=== PATIENT | male | born 1950 | race Caucasian/White ===

== ENCOUNTER 2018-01-15 14:26 | Emergency (ER) | payer OTHER ==
[~2018-01-15] VITALS: Ht 177.8 cm; Wt 113.5 kg
[~2018-01-15 14:26] MED LIST: CHOL239. PO; CIPR500T3 PO; DIFL5DRO OP; FLUT10SP NAS; METR500T PO; OMEG1CAP48 PO; PENT100C2 PO; QUIN20TA PO; QUIN20TA17 PO; TRIA10PO2 TD; [UNRECOGNIZED DRUG - OTHER] PO
[2018-01-15 15:16] LABS: BASOPHILS # (AUTO) 0.03 x10^3/uL (0-0.1); BASOPHILS % (AUTO) 0 % (0-1); EOSINOPHILS # (AUTO) 0.13 x10^3/uL (0-0.4); EOSINOPHILS % (AUTO) 1 % (1-7); LYMPHOCYTES # (AUTO) 2.26 x10^3/uL (1-3.4); LYMPHOCYTES % (AUTO) 22 % (22-44); MD NO; MEAN CORPUSCULAR HEMOGLOBIN 29.8 pg (27.5-34.5); MEAN CORPUSCULAR HGB CONC 32.7 g/dL (33.2-36.2); MEAN CORPUSCULAR VOLUME 91.1 fL (81-97); MEAN PLATELET VOLUME 9.5 fL (7.4-10.4); MONOCYTES # (AUTO) 0.74 x10^3/uL (0.2-0.8); MONOCYTES % (AUTO) 7 % (2-9); NEUTROPHILS # (AUTO) 7.21 x10^3/uL (1.8-6.8); NEUTROPHILS % (AUTO) 70 % (42-75); PLATELET COUNT 129 x10^3/uL (130-400); RED BLOOD COUNT 4.23 x10^6/uL (4.38-5.82)
[2018-01-15 15:20] LABS: INTERNATIONAL NORMALIZED RATIO 1.02 (0.93-1.1); PROTHROMBIN TIME 10.6 Seconds (9.6-11.5)
[2018-01-15] MEDS ORDERED: PHENYLEPHRINE NASAL 1%, 15ML SPRAY ONE (15:30)
[2018-01-15 17:31] VITALS: BP 156/104
== END 2018-01-15 17:32 | disposition home or self-care (01) ==
LOC: MERGE 14:26 → ED 16:59
DX: R04.0 Epistaxis (principal); I10 Essential (primary) hypertension; K21.9 Gastro-esophageal reflux disease without esophagitis; Z90.49 Acquired absence of other specified parts of digestive tract
CPT/HCPCS: 30901; 36415; 85025; 85610; 85730; 99284

== ENCOUNTER 2018-01-17 14:21 | Emergency (ER) | payer OTHER ==
[~2018-01-17] VITALS: Ht 177.8 cm; Wt 114.0 kg
[2018-01-17] MEDS ORDERED: OXYMETAZOLINE NASAL SPRAY 0.05%, 15ML NAS ONE (14:30)
[2018-01-17 14:37] VITALS: BP 136/88
[2018-01-17] MEDS ORDERED: OXYMETAZOLINE NASAL SPRAY 0.05%, 15ML ONE ×2 (14:45→15:09)
[2018-01-17] MEDS: SODIUM CHLORIDE 0.9% 1,000ML IVBOLUS ONE ×2 (14:54→15:21)
[2018-01-17 15:00] LABS: MEAN CORPUSCULAR HEMOGLOBIN 29.5 pg (27.5-34.5); MEAN CORPUSCULAR HGB CONC 32.5 g/dL (33.2-36.2); MEAN CORPUSCULAR VOLUME 90.8 fL (81-97); MEAN PLATELET VOLUME 9.7 fL (7.4-10.4); PLATELET COUNT 142 x10^3/uL (130-400); RED BLOOD COUNT 4.03 x10^6/uL (4.38-5.82); RED CELL DISTRIBUTION WIDTH 19.7 % (9.4-14.8)
[2018-01-17 15:07] LABS: ALBUMIN 2.9 g/dL (3.4-5.0); ANION GAP 9 mmol/L (5-15); CALCIUM 8.6 mg/dL (8.5-10.1); CHLORIDE 107 mmol/L (98-107); CREATININE 1.27 mg/dL (0.7-1.3)
[2018-01-17 15:16] LABS: INTERNATIONAL NORMALIZED RATIO 1.03 (0.93-1.1); PROTHROMBIN TIME 10.7 Seconds (9.6-11.5)
[2018-01-17 15:34] LABS: BASOPHILS # (AUTO) 0.04 x10^3/uL (0-0.1); BASOPHILS % (AUTO) 0 % (0-1); EOSINOPHILS # (AUTO) 0.12 x10^3/uL (0-0.4); EOSINOPHILS % (AUTO) 1 % (1-7); LYMPHOCYTES # (AUTO) 2.01 x10^3/uL (1-3.4); LYMPHOCYTES % (AUTO) 17 % (22-44); MD SCAN; MONOCYTES # (AUTO) 0.68 x10^3/uL (0.2-0.8); MONOCYTES % (AUTO) 6 % (2-9); NEUTROPHILS # (AUTO) 9.15 x10^3/uL (1.8-6.8); NEUTROPHILS % (AUTO) 76 % (42-75)
[2018-01-17] MEDS ORDERED: SODIUM CHLORIDE FLUSH 10ML SYR IVF ONE (16:00)
== END 2018-01-17 16:33 | disposition home or self-care (01) ==
LOC: MERGE 14:21 → ED 16:19
DX: R04.0 Epistaxis (principal); D62 Acute posthemorrhagic anemia; D72.829 Elevated white blood cell count, unspecified; I10 Essential (primary) hypertension
CPT/HCPCS: 36415; 80048; 82040; 85025; 85610; 85730; 96360; 99284; J7030

== ENCOUNTER 2018-01-31 03:55 | Emergency (ER) | payer OTHER ==
[~2018-01-31] VITALS: Ht 177.8 cm; Wt 112.0 kg
[~2018-01-31 03:55] MED LIST changes: +PANT40TA5 PO
[2018-01-31] MEDS ORDERED: TRANEXAMIC ACID 100 MG/ML, 10ML ONE ×2 (05:16→07:52)
[2018-01-31] MEDS ORDERED: TRANEXAMIC ACID 100 MG/ML, 10ML TP ONE (05:30)
[2018-01-31 05:42] LABS: BASOPHILS # (AUTO) 0.03 x10^3/uL (0-0.1); BASOPHILS % (AUTO) 0 % (0-1); EOSINOPHILS # (AUTO) 0.12 x10^3/uL (0-0.4); EOSINOPHILS % (AUTO) 1 % (1-7); LYMPHOCYTES # (AUTO) 1.38 x10^3/uL (1-3.4); LYMPHOCYTES % (AUTO) 13 % (22-44); MD NO; MEAN CORPUSCULAR HEMOGLOBIN 29.6 pg (27.5-34.5); MEAN CORPUSCULAR VOLUME 89.7 fL (81-97); MEAN PLATELET VOLUME 8.7 fL (7.4-10.4); MONOCYTES # (AUTO) 0.58 x10^3/uL (0.2-0.8); MONOCYTES % (AUTO) 6 % (2-9); NEUTROPHILS % (AUTO) 80 % (42-75); PLATELET COUNT 146 x10^3/uL (130-400); RED BLOOD COUNT 3.15 x10^6/uL (4.38-5.82); RED CELL DISTRIBUTION WIDTH 19.4 % (9.4-14.8)
[2018-01-31 06:31] VITALS: BP 137/87
[2018-01-31] MEDS ORDERED: OXYMETAZOLINE NASAL SPRAY 0.05%, 15ML ONE (06:59)
[2018-01-31] MEDS ORDERED: OXYMETAZOLINE NASAL SPRAY 0.05%, 15ML NAS ONE (07:30)
[2018-01-31] MEDS ORDERED: SODIUM CHLORIDE FLUSH 10ML SYR IVF ONE (07:30)
== END 2018-01-31 06:34 | disposition home or self-care (01) ==
LOC: ED 06:28
DX: R04.0 Epistaxis (principal); I10 Essential (primary) hypertension; K21.9 Gastro-esophageal reflux disease without esophagitis; G43.909 Migraine, unspecified, not intractable, without status migrainosus
CPT/HCPCS: 36415; 85025; 99283

== ENCOUNTER 2018-08-18 04:10 | Inpatient (IN) | payer OTHER ==
[~2018-08-18] VITALS: Ht 175.3 cm; Wt 126.0 kg
[~2018-08-18 04:10] MED LIST changes: +AMLO5TAB7 PO; +CALC625T64 PO; +CEFD300C37 PO; +MULT-751 PO; +TAMS-11 PO
[2018-08-18 05:08] LABS: INTERNATIONAL NORMALIZED RATIO 1.05 (0.93-1.1); PROTHROMBIN TIME 10.8 Seconds (9.6-11.5)
[2018-08-18 05:12] LABS: ALBUMIN 2.7 g/dL (3.4-5.0); ANION GAP 3 mmol/L (5-15); CALCIUM 7.8 mg/dL (8.5-10.1); CHLORIDE 107 mmol/L (98-107); CREATININE 1.22 mg/dL (0.7-1.3)
[2018-08-18 05:50] LABS: MEAN CORPUSCULAR HEMOGLOBIN 29.9 pg (27.5-34.5); MEAN CORPUSCULAR HGB CONC 32.3 g/dL (33.2-36.2); MEAN CORPUSCULAR VOLUME 92.7 fL (81-97); RED BLOOD COUNT 3.59 x10^6/uL (4.38-5.82); RED CELL DISTRIBUTION WIDTH 22.2 % (9.4-14.8)
[2018-08-18 06:09] LABS: MEAN PLATELET VOLUME 9.8 fL (7.4-10.4); PLATELET COUNT 81 x10^3/uL (130-400)
[2018-08-18 06:10] LABS: MD YES
[2018-08-18 06:12] LABS: BAND#(MANUAL) 0.74 x10^3/uL; BANDS%(MANUAL) 7 % (0-7); EOS#(MANUAL) 0.21 x10^3/uL (0.0-0.4); EOS% (MANUAL) 2 % (1-7); LYMPHS% (MANUAL) 20 % (22-44); MONOS#(MANUAL) 0.63 x10^3/uL (0.3-2.7); MONOS% (MANUAL) 6 % (2-9); SEG#(MANUAL) 6.83 x10^3/uL (1.8-6.8); SEGS% (MANUAL) 65 % (42-75)
[2018-08-18 06:13] LABS: ANISOCYTOSIS 2+
[2018-08-18 06:14] LABS: OVALOCYTES 1+; POLYCHROMASIA 1+
[2018-08-18 06:15] LABS: <PLATELET ESTIMATE> DECREASED; HYPOCHROMIA 1+; LARGE PLATELETS 1+
[2018-08-18] MEDS ORDERED: TRANEXAMIC ACID 100 MG/ML, 10ML ONE ×2 (06:23→06:29)
[2018-08-18] MEDS ORDERED: LIDOCAINE 1%-EPI 1:100K, 20ML ONE (06:23)
[2018-08-18] MEDS ORDERED: LIDOCAINE 1%-EPI 1:100K, 20ML INFIL ONE (06:30)
[2018-08-18] MEDS ORDERED: TRANEXAMIC ACID 1,000 MG in SODIUM CHLORIDE 0.9% 100 ML IV ONE (06:30)
[2018-08-18] MEDS ORDERED: ACETAMINOPHEN 325 MG TABLET PO PRN ×2 (08:30→13:00)
[2018-08-18] MEDS ORDERED: ONDANSETRON 2MG/ML, 2ML IVPush PRN (08:30)
[2018-08-18] MEDS ORDERED: OXYcodone IR 5MG TABLET PO PRN (08:30)
[2018-08-18] MEDS ORDERED: ONDANSETRON ODT 4 MG PO PRN (08:30)
[2018-08-18] MEDS ORDERED: hydrALAzine 20 MG/ML, 1ML IVPush PRN (08:30)
[2018-08-18] MEDS ORDERED: morphine SULFATE 10 MG/ML, 1ML IVPush PRN (08:30)
[2018-08-18] MEDS ORDERED: GUAIFENESIN/COD200MG-20MG/10ML LIQUID PO PRN (08:30)
[2018-08-18 09:15] LABS: ANION GAP 7 mmol/L (5-15); CALCIUM 8.1 mg/dL (8.5-10.1); CHLORIDE 106 mmol/L (98-107); CREATININE 1.15 mg/dL (0.7-1.3)
[2018-08-18] MEDS ORDERED: LIDOCAINE 1%-EPI 1:100K, 30ML ONE (11:03)
[2018-08-18] MEDS ORDERED: BUPIVACAINE/PF-EPI 0.25% 1:200K ONE (11:03)
[2018-08-18] MEDS ORDERED: SUCCINYLCHOLINE 20 MG/ML, 10ML ONE (11:41)
[2018-08-18] MEDS ORDERED: FENTANYL PF 250 MCG/5ML ONE (11:42)
[2018-08-18] MEDS ORDERED: MIDAZOLAM 1 MG/ML, 2ML ONE (11:42)
[2018-08-18] MEDS ORDERED: LIDOCAINE-MPF 2% ,5ML ONE (11:43)
[2018-08-18] MEDS ORDERED: PROPOFOL 10 MG/ML, 20ML ONE (11:43)
[2018-08-18] MEDS ORDERED: CLINDAMYCIN 150 MG/ML, 6ML ONE (11:57)
[2018-08-18] MEDS ORDERED: DEXAMETHASONE 4 MG/ML, 1ML ONE ×2 (12:01)
[2018-08-18] MEDS ORDERED: ONDANSETRON 2MG/ML, 2ML ONE ×2 (12:01)
[2018-08-18] MEDS ORDERED: LIDOCAINE 1%-EPI 1:100K, 30ML INFIL ONE (12:03)
[2018-08-18] MEDS ORDERED: OXYcodone 5 MG/5 ML ORAL.SOL UDC ONE (12:57)
[2018-08-18] MEDS ORDERED: LABETALOL 5MG/ML, 20ML IV PRN (13:00)
[2018-08-18] MEDS ORDERED: FENTANYL PF 100 MCG/2ML IV PRN (13:00)
[2018-08-18] MEDS ORDERED: HALOPERIDOL 5 MG/ML IV PRN (13:00)
[2018-08-18] MEDS ORDERED: OXYcodone 5 MG/5 ML ORAL.SOL UDC PO PRN (13:00)
[2018-08-18] MEDS ORDERED: PROMETHAZINE 25 MG/ML, 1ML IV PRN (13:00)
[2018-08-18] MEDS ORDERED: hydrALAzine 20 MG/ML, 1ML IV PRN (13:00)
[2018-08-18] MEDS ORDERED: ALBUTEROL SULFATE 2.5 MG/3 ML NPPB PRN (13:00)
[2018-08-18] MEDS ORDERED: MEPERIDINE/PF 25MG/0.5ML IVPush PRN (13:00)
[2018-08-18] MEDS ORDERED: TAMSULOSIN 0.4 MG CAP.ER.24H PO ONE (13:00)
[2018-08-18] MEDS ORDERED: HYDROmorphone 1 MG/ML, 1ML IV PRN (13:00)
[2018-08-18 13:34] VITALS: BP 143/82
[2018-08-18 19:20] VITALS: BP 124/70
[2018-08-18] MEDS: CHLORHEXIDINE GLUCONATE MOUTHWASH 0.12%, 473ML MM SCH (21:00)
[2018-08-19 00:55] VITALS: BP 133/81
[2018-08-19 04:58] LABS: MEAN CORPUSCULAR HEMOGLOBIN 30.3 pg (27.5-34.5); MEAN CORPUSCULAR HGB CONC 32.1 g/dL (33.2-36.2); MEAN CORPUSCULAR VOLUME 94.4 fL (81-97); MEAN PLATELET VOLUME 10.4 fL (7.4-10.4); PLATELET COUNT 80 x10^3/uL (130-400); RED CELL DISTRIBUTION WIDTH 22.3 % (9.4-14.8)
[2018-08-19 05:15] LABS: MD YES
[2018-08-19 05:16] LABS: BAND#(MANUAL) 0.98 x10^3/uL; BANDS%(MANUAL) 7 % (0-7); LYMPH#(MANUAL) 0.98 x10^3/uL (1-3.4); LYMPHS% (MANUAL) 7 % (22-44); MONOS#(MANUAL) 0.14 x10^3/uL (0.3-2.7); MONOS% (MANUAL) 1 % (2-9); SEGS% (MANUAL) 85 % (42-75)
[2018-08-19 05:17] LABS: <PLATELET ESTIMATE> DECREASED; <PLT MORPHOLOGY> NORMAL PLT MORPH; ANISOCYTOSIS 1+; OVALOCYTES 1+; POLYCHROMASIA 1+
[2018-08-19 07:13] VITALS: BP 121/67
[2018-08-19] MEDS: CHLORHEXIDINE GLUCONATE MOUTHWASH 0.12%, 473ML MM SCH (09:48)
[2018-08-19] MEDS: QUINAPRIL 20MG TABLET PO SCH (09:48)
[2018-08-19] MEDS: GUAIFENESIN 200 MG TABLET PO SCH ×3 (12:37→22:24)
[2018-08-19 13:45] VITALS: BP 136/70
[2018-08-19 15:04] LABS: MICROSCOPIC AUTO
[2018-08-19 19:05] VITALS: BP 106/60
[2018-08-19] MEDS: CHLORHEXIDINE 15 ML UDC MM SCH (22:24)
[2018-08-20 01:26] VITALS: BP 117/55
[2018-08-20] MEDS: GUAIFENESIN 200 MG TABLET PO SCH ×4 (06:32→21:38)
[2018-08-20 08:52] LABS: MEAN CORPUSCULAR HEMOGLOBIN 29.9 pg (27.5-34.5); MEAN CORPUSCULAR HGB CONC 31.8 g/dL (33.2-36.2); RED BLOOD COUNT 3.15 x10^6/uL (4.38-5.82)
[2018-08-20 09:12] LABS: BASOPHILS # (AUTO) 0.04 x10^3/uL (0-0.1); BASOPHILS % (AUTO) 0 % (0-1); EOSINOPHILS # (AUTO) 0.05 x10^3/uL (0-0.4); EOSINOPHILS % (AUTO) 1 % (1-7); LYMPHOCYTES # (AUTO) 1.31 x10^3/uL (1-3.4); LYMPHOCYTES % (AUTO) 12 % (22-44); MD SCAN; MONOCYTES # (AUTO) 0.58 x10^3/uL (0.2-0.8); MONOCYTES % (AUTO) 5 % (2-9); NEUTROPHILS # (AUTO) 9.19 x10^3/uL (1.8-6.8); NEUTROPHILS % (AUTO) 82 % (42-75); PLATELET COUNT 77 x10^3/uL (130-400)
[2018-08-20 10:20] VITALS: BP 131/81
[2018-08-20] MEDS: QUINAPRIL 20MG TABLET PO SCH (10:25)
[2018-08-20] MEDS: CHLORHEXIDINE 15 ML UDC MM SCH ×2 (10:25→21:37)
[2018-08-20] MEDS: FUROSEMIDE 20 MG TABLET PO SCH (18:29)
[2018-08-20 20:14] VITALS: BP 120/67
[2018-08-21 03:39] VITALS: BP 135/85
[2018-08-21 05:53] LABS: MEAN CORPUSCULAR HEMOGLOBIN 30.7 pg (27.5-34.5); MEAN CORPUSCULAR HGB CONC 32.9 g/dL (33.2-36.2); MEAN CORPUSCULAR VOLUME 93.3 fL (81-97); RED BLOOD COUNT 3.37 x10^6/uL (4.38-5.82); RED CELL DISTRIBUTION WIDTH 22.3 % (9.4-14.8)
[2018-08-21] MEDS: GUAIFENESIN 200 MG TABLET PO SCH (06:31)
[2018-08-21 07:08] VITALS: BP 148/92
[2018-08-21 08:09] LABS: MD YES; MEAN PLATELET VOLUME 12.1 fL (7.4-10.4); PLATELET COUNT 76 x10^3/uL (130-400)
[2018-08-21 08:11] LABS: BAND#(MANUAL) 0.32 x10^3/uL; BANDS%(MANUAL) 3 % (0-7); BASOS#(MANUAL) 0.11 x10^3/uL (0-0.1); BASOS% (MANUAL) 1 % (0-1); EOS#(MANUAL) 0.32 x10^3/uL (0.0-0.4); EOS% (MANUAL) 3 % (1-7); LYMPH#(MANUAL) 1.71 x10^3/uL (1-3.4); LYMPHS% (MANUAL) 16 % (22-44); MONOS#(MANUAL) 0.86 x10^3/uL (0.3-2.7); MONOS% (MANUAL) 8 % (2-9); SEG#(MANUAL) 7.38 x10^3/uL (1.8-6.8); SEGS% (MANUAL) 69 % (42-75)
[2018-08-21 08:12] LABS: <PLATELET ESTIMATE> DECREASED; ANISOCYTOSIS 1+; LARGE PLATELETS 1+; POLYCHROMASIA 1+
[2018-08-21] MEDS: CHLORHEXIDINE 15 ML UDC MM SCH (09:00)
[2018-08-21] MEDS: FUROSEMIDE 20 MG TABLET PO SCH (09:00)
[2018-08-21] MEDS: QUINAPRIL 20MG TABLET PO SCH (09:00)
== END 2018-08-21 09:18 | disposition left against medical advice (07) | DRG 133 ==
LOC: ED 04:49 → EDIP 08:14 → 4NOR 09:07
PROVIDERS: ADMIT Internal Medicine; ATTEND Internal Medicine
PROC: 0JB10ZZ Excision of Face Subcutaneous Tissue and Fascia, Open Approach (ICD-10-PCS; 2018-08-18)
PROC: 0W3 Anatomical Regions, General, Control (ICD-10-PCS; principal; 2018-08-18 13:00)
DX: K06.8 Other specified disorders of gingiva and edentulous alveolar ridge (principal); J96.01 Acute respiratory failure with hypoxia; D68.9 Coagulation defect, unspecified; D62 Acute posthemorrhagic anemia; E46 Unspecified protein-calorie malnutrition; Z68.41 Body mass index [BMI] 40.0-44.9, adult; D69.6 Thrombocytopenia, unspecified; E66.01 Morbid (severe) obesity due to excess calories; I10 Essential (primary) hypertension; K21.9 Gastro-esophageal reflux disease without esophagitis; N40.0 Benign prostatic hyperplasia without lower urinary tract symptoms; R32 Unspecified urinary incontinence; I77.819 Aortic ectasia, unspecified site; F17.200 Nicotine dependence, unspecified, uncomplicated; Z79.899 Other long term (current) drug therapy; Z87.442 Personal history of urinary calculi; Z53.21 Procedure and treatment not carried out due to patient leaving prior to being seen by health care provider
CPT/HCPCS: 36415; 70100; 71045; 71250; 80048; 81001; 82040; 82728; 83540; 83550; 83880; 85025; 85610; 93306; 93970; 99285; G0378; J1100; J2250; J2405; J2704; J3010; J3490; J0330

== ENCOUNTER 2019-05-14 22:49 | Emergency (ER) | payer MEDICARE, OTHER ==
[~2019-05-14] VITALS: Ht 177.8 cm; Wt 121.8 kg
[~2019-05-14 22:49] MED LIST changes: +AMLO-150 PO; -AMLO5TAB7 PO
[2019-05-15 00:28] VITALS: BP 144/80
== END 2019-05-15 00:30 | disposition home or self-care (01) ==
LOC: ED 23:11
DX: R04.0 Epistaxis (principal); I10 Essential (primary) hypertension; G43.909 Migraine, unspecified, not intractable, without status migrainosus
CPT/HCPCS: 99281

== ENCOUNTER 2019-09-25 12:39 | Inpatient (IN) | payer MEDICARE ==
[~2019-09-25] VITALS: Ht 177.8 cm; Wt 132.9 kg
--- NOTE | 2019-09-25 12:59 | NUR ---
BIB [facility] AFTER PT WENT TO PCP APPT AND WAS FOUND TO BE AT 79% RA AND C/O FEELING INCREASED LETHARGY AND WEAKNESS X 1 MONTH. HAS BILAT LEG SWELLING X 1 MONTH. HX CHF RECENTLY HAD LASIX DOSE INCREASED. HAS NONPRODUCTIVE COUGH. DENIES RECENT ILLNESS, FEVERS, CHILLS. VS PANTOGRAPHER BS 103, BP 180/98, RR 24-26, HR 82 SR. PLACED ON 3L NC PANTOGRAPHER NOW SATING 97%. PT RESTING ON GURNEY. NADN. MONITORS APPLIED. WARM BLANKET PROVIDED. EKG COMPLETED.
[2019-09-25] MEDS ORDERED: POTA10PI PO (13:06)
[2019-09-25] MEDS ORDERED: LORA10TA62 PO (13:06)
[2019-09-25] MEDS ORDERED: FLUT9.9S NS (13:06)
[2019-09-25] MEDS ORDERED: LOSA50TA14 PO (13:06)
[2019-09-25] MEDS ORDERED: LASIX PO (13:06)
[2019-09-25] MEDS ORDERED: SODIUM CHLORIDE FLUSH 10ML SYR IVF ONE (13:30)
--- NOTE | 2019-09-25 13:47 | NUR ---
TASK RN: PIV ESTABLISHED WITH US GUIDANCE. BLOOD DRAWN AT IV START AND SENT TO LAB.
--- NOTE | 2019-09-25 13:59 | NUR ---
PT RESTING ON GURNEY. NADN. ANNA.
[2019-09-25 14:15] LABS: INTERNATIONAL NORMALIZED RATIO 1.08 (0.93-1.1); PROTHROMBIN TIME 11.3 Seconds (9.6-11.5)
[2019-09-25 14:17] LABS: ALANINE AMINOTRANSFERASE 59 U/L (12-78); ALBUMIN 2.9 g/dL (3.4-5.0); ANION GAP 3 mmol/L (5-15); CALCIUM 8.3 mg/dL (8.5-10.1); CHLORIDE 105 mmol/L (98-107); CREATININE 1.26 mg/dL (0.7-1.3)
[2019-09-25 14:21] LABS: ALKALINE PHOSPHATASE 101 U/L (45-117); BILIRUBIN,TOTAL 0.9 mg/dL (0.2-1.0); TOTAL PROTEIN 8.3 g/dL (6.4-8.2); TROPONIN I < 0.015 ng/mL (0.000-0.045)
[2019-09-25 14:35] LABS: MEAN CORPUSCULAR HEMOGLOBIN 32.5 pg (27.5-34.5); MEAN CORPUSCULAR HGB CONC 31.9 g/dL (33.2-36.2); MEAN CORPUSCULAR VOLUME 101.9 fL (81-97); MEAN PLATELET VOLUME 10.5 fL (7.4-10.4); RED BLOOD COUNT 3.44 x10^6/uL (4.38-5.82)
[2019-09-25 14:38] LABS: PLATELET COUNT 45 x10^3/uL (130-400)
[2019-09-25 15:30] LABS: BASOPHILS # (AUTO) 0.02 x10^3/uL (0-0.1); BASOPHILS % (AUTO) 0 % (0-1); EOSINOPHILS # (AUTO) 0.04 x10^3/uL (0-0.4); EOSINOPHILS % (AUTO) 1 % (1-7); LYMPHOCYTES # (AUTO) 0.91 x10^3/uL (1-3.4); LYMPHOCYTES % (AUTO) 10 % (22-44); MONOCYTES # (AUTO) 0.38 x10^3/uL (0.2-0.8); MONOCYTES % (AUTO) 4 % (2-9); NEUTROPHILS # (AUTO) 7.96 x10^3/uL (1.8-6.8); NEUTROPHILS % (AUTO) 86 % (42-75)
[2019-09-25 15:31] LABS: MD MORPH REVIEW ONLY
[2019-09-25 15:33] LABS: ANISOCYTOSIS 1+
[2019-09-25 15:34] LABS: <PLATELET ESTIMATE> DECREASED; POLYCHROMASIA 1+
[2019-09-25 15:35] LABS: <PLT MORPHOLOGY> NORMAL PLT MORPH
--- NOTE | 2019-09-25 15:45 | NUR ---
PT TO AND FROM CT IN STABLE CONDITION.
[2019-09-25] MEDS ORDERED: OMNIPAQUE 350 MG/ML, 100ML BOTTLE ONE (15:55)
[2019-09-25] MEDS ORDERED: AZITHROMYCIN 500 MG in SODIUM CHLORIDE 0.9% 250 ML IVPB ONE (16:30)
[2019-09-25] MEDS ORDERED: CEFTRIAXONE PMX 1GM/50ML 50 ML IVPB ONE (16:30)
[2019-09-25] MEDS ORDERED: CEFTRIAXONE PMX 1GM/50ML 50 ML ONE (16:53)
[2019-09-25] MEDS ORDERED: SODIUM CHLORIDE FLUSH 10ML SYR IVF PRN (17:00)
--- NOTE | 2019-09-25 17:02 | NUR ---
REPORT GIVEN TO FABI, REHAN RN. ALL QUESTIONS ANSWERED. AWAITING PT TRANSPORT.
--- NOTE | 2019-09-25 17:27 | NUR ---
PT RESTING ON GURNEY. NADN. ANNA.
[2019-09-25] MEDS ORDERED: HEPARIN 5,000 UNITS/ML, 1ML SQ SCH (18:00)
[2019-09-25] MEDS ORDERED: BISACODYL 10 MG SUPP PR PRN (18:00)
[2019-09-25] MEDS ORDERED: FUROSEMIDE 40 MG/4 ML IV ONE (18:00)
[2019-09-25] MEDS ORDERED: ACETAMINOPHEN 325 MG TABLET PO PRN (18:00)
[2019-09-25] MEDS ORDERED: ONDANSETRON ODT 4 MG PO PRN (18:00)
[2019-09-25] MEDS ORDERED: POLYETHYLENE GLYCOL 17 GM PACKET PO PRN (18:00)
--- NOTE | 2019-09-25 18:09 | NUR ---
PT RESTING ON GURNEY. NADN. ANNA.
--- NOTE | 2019-09-25 18:17 | NUR ---
REPORT GIVEN TO CHERRI, REHAN RN. ALL QUESTIONS ANSWERED. AWAITING PT TRANSPORT.
[2019-09-25] MEDS ORDERED: FLUTICASONE NASAL SPRAY 16GM NAS PRN (20:30)
[2019-09-25] MEDS: SODIUM CHLORIDE FLUSH 10ML SYR IVF SCH (21:00)
[2019-09-25 21:24] VITALS: BP 151/103
[2019-09-25] MEDS: CARVEDILOL 12.5 MG TABLET PO SCH (21:28)
[2019-09-25 22:14] VITALS: BP 163/88
[2019-09-26] MEDS ORDERED: DIPHENHYDRAMINE 25 MG CAPSULE PO PRN (01:00)
[2019-09-26 01:02] VITALS: BP 151/80
[2019-09-26] MEDS: CARVEDILOL 12.5 MG TABLET PO SCH ×2 (05:56→18:01)
[2019-09-26 07:02] LABS: ALANINE AMINOTRANSFERASE 47 U/L (12-78); ALBUMIN 2.4 g/dL (3.4-5.0); CALCIUM 7.9 mg/dL (8.5-10.1)
[2019-09-26 07:04] LABS: MEAN CORPUSCULAR HEMOGLOBIN 32.7 pg (27.5-34.5); MEAN CORPUSCULAR HGB CONC 31.5 g/dL (33.2-36.2); MEAN CORPUSCULAR VOLUME 104.1 fL (81-97); RED BLOOD COUNT 3.07 x10^6/uL (4.38-5.82); RED CELL DISTRIBUTION WIDTH 21.8 % (9.4-14.8)
[2019-09-26 07:06] LABS: ALKALINE PHOSPHATASE 81 U/L (45-117); BILIRUBIN,TOTAL 0.5 mg/dL (0.2-1.0); TOTAL PROTEIN 7.3 g/dL (6.4-8.2); TROPONIN I < 0.015 ng/mL (0.000-0.045)
[2019-09-26 07:07] LABS: ANION GAP 5 mmol/L (5-15); CHLORIDE 105 mmol/L (98-107)
[2019-09-26 07:24] LABS: BASOPHILS # (AUTO) 0.05 x10^3/uL (0-0.1); BASOPHILS % (AUTO) 1 % (0-1); EOSINOPHILS # (AUTO) 0.02 x10^3/uL (0-0.4); EOSINOPHILS % (AUTO) 0 % (1-7); LYMPHOCYTES # (AUTO) 0.86 x10^3/uL (1-3.4); LYMPHOCYTES % (AUTO) 9 % (22-44); MD SCAN; MEAN PLATELET VOLUME 9.9 fL (7.4-10.4); MONOCYTES # (AUTO) 0.23 x10^3/uL (0.2-0.8); MONOCYTES % (AUTO) 2 % (2-9); NEUTROPHILS % (AUTO) 89 % (42-75)
[2019-09-26 07:27] LABS: PLATELET COUNT 48 x10^3/uL (130-400)
[2019-09-26] MEDS: FUROSEMIDE 40 MG/4 ML IV SCH ×2 (08:09→16:52)
[2019-09-26] MEDS: POTASSIUM CHLORIDE 10 MEQ TABLET.ER PO SCH (08:11)
[2019-09-26] MEDS: LOSARTAN 50MG TABLET PO SCH (08:12)
[2019-09-26] MEDS: SODIUM CHLORIDE FLUSH 10ML SYR IVF SCH ×2 (08:14→21:05)
[2019-09-26] MEDS: SENNA/DOCUSATE TABLET PO SCH (08:15)
[2019-09-26] MEDS: LORATADINE 10 MG TABLET PO SCH (08:15)
[2019-09-26 08:38] VITALS: BP 130/75
[2019-09-26] MEDS ORDERED: FLUTICASONE NASAL SPRAY 16GM NAS PRN (09:00)
[2019-09-26 11:38] LABS: TROPONIN I < 0.015 ng/mL (0.000-0.045)
[2019-09-26] MEDS: CEFTRIAXONE PMX 1GM/50ML 50 ML IV SCH (16:07)
[2019-09-26 16:44] VITALS: BP 97/56
[2019-09-26] MEDS: AZITHROMYCIN 500 MG in SODIUM CHLORIDE 0.9% 250 ML IV SCH (16:59)
[2019-09-26 19:53] VITALS: BP 123/70
[2019-09-27 01:46] VITALS: BP 127/74
[2019-09-27 05:30] LABS: CHLORIDE 104 mmol/L (98-107)
[2019-09-27 05:37] LABS: ANION GAP 4 mmol/L (5-15); CALCIUM 8.4 mg/dL (8.5-10.1); CREATININE 1.66 mg/dL (0.7-1.3)
[2019-09-27 05:54] LABS: MEAN CORPUSCULAR HEMOGLOBIN 32.1 pg (27.5-34.5); MEAN CORPUSCULAR HGB CONC 31.2 g/dL (33.2-36.2); MEAN CORPUSCULAR VOLUME 102.9 fL (81-97); MEAN PLATELET VOLUME 10.4 fL (7.4-10.4); RED BLOOD COUNT 3.12 x10^6/uL (4.38-5.82); RED CELL DISTRIBUTION WIDTH 22.2 % (9.4-14.8)
[2019-09-27 05:58] LABS: PLATELET COUNT 44 x10^3/uL (130-400)
[2019-09-27 06:13] LABS: <PLATELET ESTIMATE> DECREASED; <PLT MORPHOLOGY> NORMAL PLT MORPH; ANISOCYTOSIS 1+; BASOPHILS # (AUTO) 0.01 x10^3/uL (0-0.1); BASOPHILS % (AUTO) 0 % (0-1); EOSINOPHILS # (AUTO) 0.04 x10^3/uL (0-0.4); EOSINOPHILS % (AUTO) 0 % (1-7); LYMPHOCYTES # (AUTO) 1.11 x10^3/uL (1-3.4); LYMPHOCYTES % (AUTO) 10 % (22-44); MD MORPH REVIEW ONLY; MONOCYTES # (AUTO) 0.49 x10^3/uL (0.2-0.8); MONOCYTES % (AUTO) 4 % (2-9); NEUTROPHILS # (AUTO) 10.06 x10^3/uL (1.8-6.8); NEUTROPHILS % (AUTO) 86 % (42-75); PMNS WITH VACUOLES 1+; POLYCHROMASIA 1+; TOXIC GRAN 1+
[2019-09-27] MEDS: FUROSEMIDE 40 MG/4 ML IV SCH ×2 (06:23→18:03)
[2019-09-27] MEDS: CARVEDILOL 12.5 MG TABLET PO SCH ×2 (06:24→18:18)
[2019-09-27 07:27] VITALS: BP 135/75
[2019-09-27] MEDS: LORATADINE 10 MG TABLET PO SCH (09:51)
[2019-09-27] MEDS: POTASSIUM CHLORIDE 10 MEQ TABLET.ER PO SCH (09:51)
[2019-09-27] MEDS: LOSARTAN 50MG TABLET PO SCH (09:52)
[2019-09-27] MEDS: SODIUM CHLORIDE FLUSH 10ML SYR IVF SCH ×2 (09:52→21:28)
[2019-09-27] MEDS: SENNA/DOCUSATE TABLET PO SCH (09:52)
[2019-09-27 12:55] VITALS: BP 129/77
[2019-09-27] MEDS: CEFTRIAXONE PMX 1GM/50ML 50 ML IV SCH (16:33)
[2019-09-27] MEDS: AZITHROMYCIN 500 MG in SODIUM CHLORIDE 0.9% 250 ML IV SCH (18:03)
[2019-09-27 19:18] VITALS: BP 125/72
[2019-09-28 00:33] VITALS: BP 113/59
[2019-09-28 05:38] LABS: ANION GAP 4 mmol/L (5-15); CALCIUM 8.3 mg/dL (8.5-10.1); CHLORIDE 102 mmol/L (98-107)
[2019-09-28 05:39] LABS: CREATININE 1.68 mg/dL (0.7-1.3)
[2019-09-28 06:06] LABS: MEAN CORPUSCULAR HEMOGLOBIN 32.6 pg (27.5-34.5); MEAN CORPUSCULAR VOLUME 105.3 fL (81-97); RED BLOOD COUNT 3.06 x10^6/uL (4.38-5.82); RED CELL DISTRIBUTION WIDTH 22.3 % (9.4-14.8)
[2019-09-28] MEDS: CARVEDILOL 12.5 MG TABLET PO SCH ×2 (06:14→17:46)
[2019-09-28 06:39] LABS: MEAN PLATELET VOLUME 10.1 fL (7.4-10.4); PLATELET COUNT 35 x10^3/uL (130-400)
[2019-09-28 06:41] LABS: MD YES
[2019-09-28 06:48] LABS: BAND#(MANUAL) 0.41 x10^3/uL; BANDS%(MANUAL) 4 % (0-7); BASOS% (MANUAL) 1 % (0-1); LYMPH#(MANUAL) 0.71 x10^3/uL (1-3.4); LYMPHS% (MANUAL) 7 % (22-44); MONOS#(MANUAL) 0.51 x10^3/uL (0.3-2.7); MONOS% (MANUAL) 5 % (2-9)
[2019-09-28 06:51] LABS: ANISOCYTOSIS 1+; POLYCHROMASIA 1+
[2019-09-28 06:52] LABS: METAMYELOCYTES% (MANUAL) 1 % (0-1); SEG#(MANUAL) 8.36 x10^3/uL (1.8-6.8); SEGS% (MANUAL) 82 % (42-75)
[2019-09-28 06:53] LABS: <PLATELET ESTIMATE> DECREASED; <PLT MORPHOLOGY> NORMAL PLT MORPH; PMNS WITH VACUOLES 1+; TOXIC GRAN 1+
[2019-09-28] MEDS: FUROSEMIDE 40 MG/4 ML IV SCH ×2 (07:33→16:42)
[2019-09-28] MEDS: SODIUM CHLORIDE FLUSH 10ML SYR IVF SCH ×2 (07:36→21:13)
[2019-09-28 07:43] VITALS: BP 119/73
[2019-09-28] MEDS: LORATADINE 10 MG TABLET PO SCH (08:44)
[2019-09-28] MEDS: AZITHROMYCIN 500 MG TABLET PO SCH (08:44)
[2019-09-28] MEDS: LOSARTAN 50MG TABLET PO SCH (08:45)
[2019-09-28] MEDS: POTASSIUM CHLORIDE 10 MEQ TABLET.ER PO SCH (08:45)
[2019-09-28] MEDS: SENNA/DOCUSATE TABLET PO SCH (08:45)
[2019-09-28 14:00] VITALS: BP 124/69
[2019-09-28] MEDS: CEFTRIAXONE PMX 1GM/50ML 50 ML IV SCH (16:04)
[2019-09-28 21:13] VITALS: BP 135/80
[2019-09-29 00:13] VITALS: BP_SYST 157; BP_SYST 68; BP_DIAS 81
[2019-09-29 00:36] VITALS: BP 132/72
[2019-09-29 05:35] LABS: MEAN CORPUSCULAR HGB CONC 31.1 g/dL (33.2-36.2); MEAN CORPUSCULAR VOLUME 102.8 fL (81-97); MEAN PLATELET VOLUME 10.8 fL (7.4-10.4); RED BLOOD COUNT 3.07 x10^6/uL (4.38-5.82); RED CELL DISTRIBUTION WIDTH 22.1 % (9.4-14.8)
[2019-09-29 05:38] LABS: ANION GAP 4 mmol/L (5-15); CALCIUM 8.3 mg/dL (8.5-10.1); CHLORIDE 101 mmol/L (98-107)
[2019-09-29 05:39] LABS: PLATELET COUNT 34 x10^3/uL (130-400)
[2019-09-29 05:40] LABS: CREATININE 1.57 mg/dL (0.7-1.3)
[2019-09-29 06:20] LABS: MD YES
[2019-09-29] MEDS: CARVEDILOL 12.5 MG TABLET PO SCH ×2 (06:24→18:00)
[2019-09-29 06:30] LABS: BAND#(MANUAL) 1.09 x10^3/uL; BANDS%(MANUAL) 10 % (0-7); LYMPH#(MANUAL) 0.55 x10^3/uL (1-3.4); LYMPHS% (MANUAL) 5 % (22-44); MONOS#(MANUAL) 0.55 x10^3/uL (0.3-2.7); MONOS% (MANUAL) 5 % (2-9); MYELOCYTES# (MANUAL) 0.11 x10^3/uL (0-0); MYELOCYTES% (MANUAL) 1 % (0-0); SEG#(MANUAL) 8.61 x10^3/uL (1.8-6.8); SEGS% (MANUAL) 79 % (42-75)
[2019-09-29 06:31] LABS: ANISOCYTOSIS 1+
[2019-09-29 06:32] LABS: POLYCHROMASIA 1+
[2019-09-29 06:33] LABS: <PLATELET ESTIMATE> DECREASED; BASOPHILLIC STIPPLING 1+; LARGE PLATELETS 1+; TOXIC GRAN 1+
[2019-09-29] MEDS ORDERED: PROPOFOL 10 MG/ML, 100ML IV ONE (07:53)
[2019-09-29] MEDS ORDERED: ROCURONIUM 10MG/ML,5ML ONE (07:53)
[2019-09-29] MEDS ORDERED: ETOMIDATE 20 MG/10 ML ONE (07:53)
[2019-09-29 08:25] VITALS: BP 151/82
[2019-09-29] MEDS: FUROSEMIDE 40 MG/4 ML IV SCH ×2 (08:26→17:22)
[2019-09-29] MEDS: SODIUM CHLORIDE FLUSH 10ML SYR IVF SCH ×3 (08:27→22:03)
[2019-09-29] MEDS: AZITHROMYCIN 500 MG TABLET PO SCH (09:00)
[2019-09-29] MEDS: POTASSIUM CHLORIDE 10 MEQ TABLET.ER PO SCH (09:00)
[2019-09-29] MEDS: LOSARTAN 50MG TABLET PO SCH (09:00)
[2019-09-29] MEDS: SENNA/DOCUSATE TABLET PO SCH (09:00)
[2019-09-29] MEDS: LORATADINE 10 MG TABLET PO SCH (09:00)
[2019-09-29] MEDS ORDERED: VECURONIUM 10 MG ONE (12:11)
[2019-09-29] MEDS ORDERED: FENTANYL PF 100 MCG/2ML ONE (12:12)
[2019-09-29] MEDS ORDERED: SENNA/DOCUSATE TABLET NG PRN (13:00)
[2019-09-29] MEDS ORDERED: SENNA 176 MG/5 ML ORAL SOL NG PRN (13:00)
[2019-09-29] MEDS ORDERED: LIDOCAINE-MPF 1%, 2ML ENDO PRN (13:00)
[2019-09-29] MEDS ORDERED: BISACODYL 10 MG SUPP PR PRN (13:00)
[2019-09-29] MEDS ORDERED: PHARMACY MAY ADJ FOR RENAL FX MC SCH (13:00)
[2019-09-29] MEDS ORDERED: DEXTROSE 50%, 50ML SYRINGE IVPush PRN (13:00)
[2019-09-29] MEDS ORDERED: FENTANYL PF 100 MCG/2ML IVPush PRN (13:00)
[2019-09-29] MEDS ORDERED: GLUCAGON 1 MG IM PRN (13:00)
[2019-09-29] MEDS: ALBUTEROL/IPRATROPIUM 2.5MG/0.5MG, 3 ML INLINE SCH ×3 (13:00→23:00)
[2019-09-29] MEDS ORDERED: DEXTROSE 4 GM TAB.CHEW PO PRN (13:00)
[2019-09-29] MEDS ORDERED: LACTULOSE 20 GM/30 ML UDC NG PRN (13:00)
[2019-09-29 14:42] LABS: TROPONIN I < 0.015 ng/mL (0.000-0.045)
[2019-09-29] MEDS ORDERED: SODIUM PHOSPHATE 20 MMOL in SODIUM CHLORIDE 0.9% 250 ML IVPB PRN (14:43)
[2019-09-29] MEDS ORDERED: FENTANYL PF 250 MCG in SODIUM CHLORIDE 0.9% 245 ML IV PRN (14:43)
[2019-09-29] MEDS ORDERED: VECURONIUM 10 MG IVPush PRN (15:00)
[2019-09-29] MEDS ORDERED: CALCIUM CHLORIDE 13.6 MEQ in DEXTROSE 5% 100 ML IVPB PRN (15:00)
[2019-09-29] MEDS ORDERED: MAGNESIUM SULFATE 1 GM in SODIUM CHLORIDE 0.9% 50 ML IVPB PRN (15:00)
[2019-09-29] MEDS ORDERED: KSCALE TO 4.0 IV SCH (15:00)
[2019-09-29] MEDS ORDERED: BUSPIRONE 10 MG TABLET NG SCH (15:00)
[2019-09-29] MEDS ORDERED: ARTIFICIAL TEARS OINT 3.5 GM EACHEYE SCH (15:00)
[2019-09-29 15:50] LABS: MICROSCOPIC AUTO
[2019-09-29 15:53] LABS: CULTURE INDICATED? NO
[2019-09-29] MEDS: SODIUM CHLORIDE 0.9% 1,000 ML IV SCH (17:22)
[2019-09-29] MEDS: INSULIN LISPRO 100 UNITS/ML, PEN SQ-INSULIN SCH ×2 (17:30→22:05)
[2019-09-29] MEDS: AMPICILLIN/SULBACTAM 3 GM in SODIUM CHLORIDE 0.9% 100 ML IV SCH (18:16)
[2019-09-29] MEDS: PROPOFOL 100 ML IV PRN (18:16)
[2019-09-29] MEDS: methylPREDNISolone SOD SUCC 40 MG/ML IV SCH (18:18)
[2019-09-29] MEDS: BUDESONIDE 0.5 MG/2 ML INHA INH SCH (19:20)
[2019-09-29 19:33] LABS: TROPONIN I < 0.015 ng/mL (0.000-0.045)
[2019-09-30] MEDS: AMPICILLIN/SULBACTAM 3 GM in SODIUM CHLORIDE 0.9% 100 ML IV SCH ×5 (00:59→23:28)
[2019-09-30] MEDS: PROPOFOL 100 ML IV PRN ×4 (01:00→21:57)
[2019-09-30] MEDS: methylPREDNISolone SOD SUCC 40 MG/ML IV SCH ×3 (02:13→17:15)
[2019-09-30] MEDS: ALBUTEROL/IPRATROPIUM 2.5MG/0.5MG, 3 ML INLINE SCH ×6 (03:00→23:00)
[2019-09-30 03:27] LABS: MEAN CORPUSCULAR HEMOGLOBIN 32.7 pg (27.5-34.5); MEAN CORPUSCULAR HGB CONC 31.9 g/dL (33.2-36.2); MEAN CORPUSCULAR VOLUME 102.5 fL (81-97); MEAN PLATELET VOLUME 10.8 fL (7.4-10.4); RED CELL DISTRIBUTION WIDTH 22.2 % (9.4-14.8)
[2019-09-30 03:30] LABS: MD YES
[2019-09-30 03:33] LABS: PLATELET COUNT 34 x10^3/uL (130-400)
[2019-09-30 03:35] LABS: ALANINE AMINOTRANSFERASE 66 U/L (12-78); ALBUMIN 2.3 g/dL (3.4-5.0); ANION GAP 6 mmol/L (5-15); CALCIUM 7.9 mg/dL (8.5-10.1); CHLORIDE 104 mmol/L (98-107); CREATININE 1.47 mg/dL (0.7-1.3)
[2019-09-30 03:40] LABS: ANISOCYTOSIS 1+; BAND#(MANUAL) 0.48 x10^3/uL; BANDS%(MANUAL) 4 % (0-7); LYMPH#(MANUAL) 0.24 x10^3/uL (1-3.4); LYMPHS% (MANUAL) 2 % (22-44); MONOS#(MANUAL) 0.12 x10^3/uL (0.3-2.7); MONOS% (MANUAL) 1 % (2-9); POLYCHROMASIA 1+; SEG#(MANUAL) 11.16 x10^3/uL (1.8-6.8); SEGS% (MANUAL) 93 % (42-75); TOXIC GRAN 1+
[2019-09-30 03:41] LABS: <PLATELET ESTIMATE> DECREASED; LARGE PLATELETS 1+; PMNS WITH VACUOLES 1+; TEAR DROPS 1+
[2019-09-30 03:45] LABS: ALKALINE PHOSPHATASE 82 U/L (45-117); BILIRUBIN,TOTAL 0.6 mg/dL (0.2-1.0); TOTAL PROTEIN 7.1 g/dL (6.4-8.2)
[2019-09-30 04:24] VITALS: BP 158/83
[2019-09-30] MEDS: CARVEDILOL 12.5 MG TABLET PO SCH ×2 (07:00→18:00)
[2019-09-30] MEDS: BUDESONIDE 0.5 MG/2 ML INHA INH SCH ×2 (07:15→18:45)
[2019-09-30] MEDS: AZITHROMYCIN 500 MG TABLET PO SCH (08:39)
[2019-09-30] MEDS: FUROSEMIDE 40 MG/4 ML IV SCH ×2 (08:39→17:16)
[2019-09-30] MEDS: LORATADINE 10 MG TABLET PO SCH (08:39)
[2019-09-30] MEDS: POTASSIUM CHLORIDE 10 MEQ TABLET.ER PO SCH (08:40)
[2019-09-30] MEDS: SENNA/DOCUSATE TABLET PO SCH (08:40)
[2019-09-30] MEDS: SODIUM CHLORIDE FLUSH 10ML SYR IVF SCH ×4 (09:00→20:45)
[2019-09-30] MEDS: LOSARTAN 50MG TABLET PO SCH (09:00)
[2019-09-30] MEDS: INSULIN LISPRO 100 UNITS/ML, PEN SQ-INSULIN SCH ×3 (11:00→20:39)
[2019-09-30] MEDS: SODIUM CHLORIDE 0.9% 1,000 ML IV SCH (23:28)
[2019-10-01] MEDS: methylPREDNISolone SOD SUCC 40 MG/ML IV SCH ×3 (01:39→17:41)
[2019-10-01] MEDS: INSULIN LISPRO 100 UNITS/ML, PEN SQ-INSULIN SCH ×4 (03:00→20:26)
[2019-10-01] MEDS: PROPOFOL 100 ML IV PRN (03:59)
[2019-10-01 04:56] LABS: MEAN CORPUSCULAR HEMOGLOBIN 32.2 pg (27.5-34.5); MEAN CORPUSCULAR VOLUME 103.9 fL (81-97); RED BLOOD COUNT 3.05 x10^6/uL (4.38-5.82); RED CELL DISTRIBUTION WIDTH 22.2 % (9.4-14.8)
[2019-10-01 05:00] LABS: ANION GAP 6 mmol/L (5-15); CALCIUM 7.7 mg/dL (8.5-10.1); CHLORIDE 105 mmol/L (98-107); CREATININE 1.34 mg/dL (0.7-1.3)
[2019-10-01 05:49] LABS: MEAN PLATELET VOLUME 10.6 fL (7.4-10.4)
[2019-10-01 05:51] LABS: BASOPHILS % (AUTO) 0 % (0-1); EOSINOPHILS # (AUTO) 0.05 x10^3/uL (0-0.4); EOSINOPHILS % (AUTO) 0 % (1-7); LYMPHOCYTES # (AUTO) 0.38 x10^3/uL (1-3.4); LYMPHOCYTES % (AUTO) 4 % (22-44); MD SCAN; MONOCYTES # (AUTO) 0.08 x10^3/uL (0.2-0.8); MONOCYTES % (AUTO) 1 % (2-9); NEUTROPHILS # (AUTO) 10.44 x10^3/uL (1.8-6.8); NEUTROPHILS % (AUTO) 95 % (42-75)
[2019-10-01 05:54] LABS: PLATELET COUNT 32 x10^3/uL (130-400)
[2019-10-01] MEDS: CARVEDILOL 12.5 MG TABLET PO SCH ×2 (06:00→17:46)
[2019-10-01] MEDS: AMPICILLIN/SULBACTAM 3 GM in SODIUM CHLORIDE 0.9% 100 ML IV SCH ×3 (06:27→18:16)
[2019-10-01] MEDS: ALBUTEROL/IPRATROPIUM 2.5MG/0.5MG, 3 ML INLINE SCH (06:36)
[2019-10-01] MEDS: BUDESONIDE 0.5 MG/2 ML INHA INH SCH (06:36)
[2019-10-01] MEDS ORDERED: CALCIUM CHLORIDE 13.6 MEQ in SODIUM CHLORIDE 0.9% 100 ML IV ONE (09:30)
[2019-10-01] MEDS: SODIUM CHLORIDE FLUSH 10ML SYR IVF SCH ×2 (10:05)
[2019-10-01] MEDS: FUROSEMIDE 40 MG/4 ML IV SCH ×2 (10:05→17:41)
[2019-10-01] MEDS: POTASSIUM CHLORIDE 10 MEQ TABLET.ER PO SCH (10:06)
[2019-10-01] MEDS: LORATADINE 10 MG TABLET PO SCH (10:06)
[2019-10-01] MEDS: SENNA/DOCUSATE TABLET PO SCH (10:06)
[2019-10-01] MEDS: LOSARTAN 50MG TABLET PO SCH (10:12)
[2019-10-01 19:42] VITALS: BP 138/77
[2019-10-02] MEDS: AMPICILLIN/SULBACTAM 3 GM in SODIUM CHLORIDE 0.9% 100 ML IV SCH ×5 (00:05→23:59)
[2019-10-02 01:28] VITALS: BP 130/85
[2019-10-02] MEDS: methylPREDNISolone SOD SUCC 40 MG/ML IV SCH ×3 (01:45→17:50)
[2019-10-02] MEDS: INSULIN LISPRO 100 UNITS/ML, PEN SQ-INSULIN SCH ×4 (03:24→20:44)
[2019-10-02] MEDS: CARVEDILOL 12.5 MG TABLET PO SCH ×2 (05:59→17:49)
[2019-10-02 06:00] VITALS: BP 145/80
[2019-10-02 06:10] LABS: ALBUMIN 2.3 g/dL (3.4-5.0); ANION GAP 4 mmol/L (5-15); CALCIUM 8.1 mg/dL (8.5-10.1); CHLORIDE 104 mmol/L (98-107)
[2019-10-02 06:14] LABS: ALANINE AMINOTRANSFERASE 46 U/L (12-78); ALKALINE PHOSPHATASE 67 U/L (45-117); BILIRUBIN,TOTAL 0.4 mg/dL (0.2-1.0); CREATININE 1.25 mg/dL (0.7-1.3); MEAN CORPUSCULAR HEMOGLOBIN 31.9 pg (27.5-34.5); MEAN CORPUSCULAR HGB CONC 31.2 g/dL (33.2-36.2); RED BLOOD COUNT 2.99 x10^6/uL (4.38-5.82); RED CELL DISTRIBUTION WIDTH 21.7 % (9.4-14.8); TOTAL PROTEIN 6.8 g/dL (6.4-8.2); TRIGLYCERIDES 118 mg/dL (50-200)
[2019-10-02 06:24] LABS: BASOPHILS % (AUTO) 0 % (0-1); EOSINOPHILS % (AUTO) 0 % (1-7); LYMPHOCYTES % (AUTO) 4 % (22-44); MD SCAN; MEAN PLATELET VOLUME 10.8 fL (7.4-10.4); MONOCYTES # (AUTO) 0.24 x10^3/uL (0.2-0.8); MONOCYTES % (AUTO) 2 % (2-9); NEUTROPHILS # (AUTO) 10.11 x10^3/uL (1.8-6.8); NEUTROPHILS % (AUTO) 94 % (42-75)
[2019-10-02 06:25] LABS: PLATELET COUNT 33 x10^3/uL (130-400)
[2019-10-02] MEDS: FUROSEMIDE 40 MG/4 ML IV SCH ×2 (08:33→17:50)
[2019-10-02] MEDS: POTASSIUM CHLORIDE 10 MEQ TABLET.ER PO SCH (08:33)
[2019-10-02] MEDS: LOSARTAN 50MG TABLET PO SCH (08:33)
[2019-10-02] MEDS: LORATADINE 10 MG TABLET PO SCH (08:33)
[2019-10-02] MEDS: SENNA/DOCUSATE TABLET PO SCH (08:33)
[2019-10-02 09:21] VITALS: BP 116/70
[2019-10-02 13:52] VITALS: BP 118/69
[2019-10-02 19:35] VITALS: BP 134/66
[2019-10-02] MEDS: DIPHENHYDRAMINE 25 MG CAPSULE PO PRN (20:41)
[2019-10-03 00:33] VITALS: BP 164/68
[2019-10-03] MEDS: methylPREDNISolone SOD SUCC 40 MG/ML IV SCH ×3 (01:34→17:22)
[2019-10-03] MEDS: INSULIN LISPRO 100 UNITS/ML, PEN SQ-INSULIN SCH ×4 (03:00→20:45)
[2019-10-03 04:35] VITALS: BP 137/83
[2019-10-03 05:22] LABS: ANION GAP 3 mmol/L (5-15); CALCIUM 8.2 mg/dL (8.5-10.1); CHLORIDE 104 mmol/L (98-107)
[2019-10-03 05:24] LABS: MEAN CORPUSCULAR HEMOGLOBIN 32.8 pg (27.5-34.5); MEAN CORPUSCULAR HGB CONC 31.5 g/dL (33.2-36.2); RED BLOOD COUNT 2.98 x10^6/uL (4.38-5.82)
[2019-10-03 05:33] VITALS: BP 149/88
[2019-10-03] MEDS: AMPICILLIN/SULBACTAM 3 GM in SODIUM CHLORIDE 0.9% 100 ML IV SCH ×3 (05:36→18:18)
[2019-10-03] MEDS: CARVEDILOL 12.5 MG TABLET PO SCH ×2 (05:36→17:22)
[2019-10-03 06:27] LABS: BASOPHILS # (AUTO) 0.01 x10^3/uL (0-0.1); BASOPHILS % (AUTO) 0 % (0-1); EOSINOPHILS # (AUTO) 0.02 x10^3/uL (0-0.4); EOSINOPHILS % (AUTO) 0 % (1-7); LYMPHOCYTES % (AUTO) 3 % (22-44); MD SCAN; MEAN PLATELET VOLUME 10.5 fL (7.4-10.4); MONOCYTES # (AUTO) 0.19 x10^3/uL (0.2-0.8); MONOCYTES % (AUTO) 2 % (2-9); NEUTROPHILS # (AUTO) 8.75 x10^3/uL (1.8-6.8); NEUTROPHILS % (AUTO) 95 % (42-75)
[2019-10-03 06:28] LABS: PLATELET COUNT 32 x10^3/uL (130-400)
[2019-10-03 07:18] VITALS: BP 130/70
[2019-10-03] MEDS: FUROSEMIDE 40 MG/4 ML IV SCH ×2 (08:21→17:22)
[2019-10-03] MEDS: POTASSIUM CHLORIDE 10 MEQ TABLET.ER PO SCH (08:21)
[2019-10-03] MEDS: LOSARTAN 50MG TABLET PO SCH (08:22)
[2019-10-03] MEDS: LORATADINE 10 MG TABLET PO SCH (08:22)
[2019-10-03] MEDS: SENNA/DOCUSATE TABLET PO SCH (08:23)
[2019-10-03 13:00] VITALS: BP 128/72
[2019-10-03 18:55] VITALS: BP 131/70
[2019-10-03] MEDS: DIPHENHYDRAMINE 25 MG CAPSULE PO PRN (20:13)
[2019-10-04] MEDS: AMPICILLIN/SULBACTAM 3 GM in SODIUM CHLORIDE 0.9% 100 ML IV SCH ×4 (00:20→17:57)
[2019-10-04 00:50] VITALS: BP 149/75
[2019-10-04] MEDS: methylPREDNISolone SOD SUCC 40 MG/ML IV SCH ×3 (01:39→17:57)
[2019-10-04] MEDS: INSULIN LISPRO 100 UNITS/ML, PEN SQ-INSULIN SCH ×4 (03:00→22:54)
[2019-10-04] MEDS: CARVEDILOL 12.5 MG TABLET PO SCH ×2 (05:50→17:58)
[2019-10-04 06:40] LABS: MEAN CORPUSCULAR HEMOGLOBIN 32.1 pg (27.5-34.5); MEAN CORPUSCULAR HGB CONC 31.3 g/dL (33.2-36.2); MEAN CORPUSCULAR VOLUME 102.6 fL (81-97); RED BLOOD COUNT 3.07 x10^6/uL (4.38-5.82); RED CELL DISTRIBUTION WIDTH 21.8 % (9.4-14.8)
[2019-10-04 06:50] LABS: ALANINE AMINOTRANSFERASE 165 U/L (12-78); ALBUMIN 2.5 g/dL (3.4-5.0); ANION GAP 7 mmol/L (5-15); CALCIUM 8.2 mg/dL (8.5-10.1); CHLORIDE 103 mmol/L (98-107); CREATININE 1.41 mg/dL (0.7-1.3)
[2019-10-04 06:52] LABS: ALKALINE PHOSPHATASE 59 U/L (45-117); BILIRUBIN,TOTAL 0.5 mg/dL (0.2-1.0); TOTAL PROTEIN 7.1 g/dL (6.4-8.2)
[2019-10-04 07:25] VITALS: BP 144/86
[2019-10-04 07:33] LABS: MEAN PLATELET VOLUME 10.9 fL (7.4-10.4)
[2019-10-04 07:35] LABS: BASOPHILS % (AUTO) 0 % (0-1); EOSINOPHILS % (AUTO) 0 % (1-7); LYMPHOCYTES # (AUTO) 0.43 x10^3/uL (1-3.4); LYMPHOCYTES % (AUTO) 4 % (22-44); MD SCAN; MONOCYTES # (AUTO) 0.21 x10^3/uL (0.2-0.8); MONOCYTES % (AUTO) 2 % (2-9); NEUTROPHILS # (AUTO) 9.11 x10^3/uL (1.8-6.8); NEUTROPHILS % (AUTO) 94 % (42-75)
[2019-10-04 07:42] LABS: PLATELET COUNT 30 x10^3/uL (130-400)
[2019-10-04] MEDS: FUROSEMIDE 40 MG/4 ML IV SCH ×2 (08:29→17:57)
[2019-10-04] MEDS: POTASSIUM CHLORIDE 10 MEQ TABLET.ER PO SCH (08:29)
[2019-10-04] MEDS: LORATADINE 10 MG TABLET PO SCH (08:30)
[2019-10-04] MEDS: LOSARTAN 50MG TABLET PO SCH (08:30)
[2019-10-04] MEDS: SENNA/DOCUSATE TABLET PO SCH (08:30)
[2019-10-04] MEDS ORDERED: CARV12.52 PO (10:34)
[2019-10-04] MEDS ORDERED: PRED10TA PO (10:34)
[2019-10-04] MEDS ORDERED: FURO40TA6 PO ×2 (10:34→16:54)
[2019-10-04] MEDS ORDERED: AMPI3VIA IV (10:36)
[2019-10-04] MEDS ORDERED: AMLO5TAB10 PO ×2 (10:43)
[2019-10-04] MEDS ORDERED: POTA10CA PO (10:43)
[2019-10-04 14:49] VITALS: BP 154/88
[2019-10-04] MEDS ORDERED: FURO-93 PO (16:54)
[2019-10-04 19:06] VITALS: BP 133/79
[2019-10-04] MEDS: DIPHENHYDRAMINE 25 MG CAPSULE PO PRN (22:54)
[2019-10-05] MEDS: AMPICILLIN/SULBACTAM 3 GM in SODIUM CHLORIDE 0.9% 100 ML IV SCH ×4 (00:41→21:15)
[2019-10-05] MEDS: methylPREDNISolone SOD SUCC 40 MG/ML IV SCH ×2 (02:42→09:38)
[2019-10-05] MEDS: INSULIN LISPRO 100 UNITS/ML, PEN SQ-INSULIN SCH ×4 (02:45→21:00)
[2019-10-05 03:35] VITALS: BP 141/64
[2019-10-05] MEDS: CARVEDILOL 12.5 MG TABLET PO SCH ×2 (06:26→17:01)
[2019-10-05 08:17] VITALS: BP 151/79
[2019-10-05] MEDS: SENNA/DOCUSATE TABLET PO SCH (09:00)
[2019-10-05] MEDS: POTASSIUM CHLORIDE 10 MEQ TABLET.ER PO SCH (09:38)
[2019-10-05] MEDS: LORATADINE 10 MG TABLET PO SCH (09:38)
[2019-10-05] MEDS: LOSARTAN 50MG TABLET PO SCH (09:38)
[2019-10-05] MEDS: FUROSEMIDE 40 MG/4 ML IV SCH (09:39)
[2019-10-05 12:40] VITALS: BP 145/80
[2019-10-05 19:06] VITALS: BP 152/73
[2019-10-05] MEDS: DIPHENHYDRAMINE 25 MG CAPSULE PO PRN (21:25)
[2019-10-06 01:01] VITALS: BP 121/75
[2019-10-06] MEDS: AMPICILLIN/SULBACTAM 3 GM in SODIUM CHLORIDE 0.9% 100 ML IV SCH ×3 (02:57→15:01)
[2019-10-06] MEDS: INSULIN LISPRO 100 UNITS/ML, PEN SQ-INSULIN SCH ×4 (03:00→22:30)
[2019-10-06 06:03] LABS: MEAN CORPUSCULAR HEMOGLOBIN 32.5 pg (27.5-34.5); MEAN CORPUSCULAR HGB CONC 31.3 g/dL (33.2-36.2); MEAN CORPUSCULAR VOLUME 103.8 fL (81-97); MEAN PLATELET VOLUME 11.8 fL (7.4-10.4); RED BLOOD COUNT 3.19 x10^6/uL (4.38-5.82); RED CELL DISTRIBUTION WIDTH 21.4 % (9.4-14.8)
[2019-10-06 06:04] LABS: ANION GAP 2 mmol/L (5-15); CALCIUM 7.9 mg/dL (8.5-10.1); CHLORIDE 102 mmol/L (98-107); CREATININE 1.29 mg/dL (0.7-1.3)
[2019-10-06 06:12] LABS: PLATELET COUNT 29 x10^3/uL (130-400)
[2019-10-06] MEDS: CARVEDILOL 12.5 MG TABLET PO SCH ×2 (06:37→17:54)
[2019-10-06 07:51] LABS: BASOPHILS # (AUTO) 0.01 x10^3/uL (0-0.1); BASOPHILS % (AUTO) 0 % (0-1); EOSINOPHILS # (AUTO) 0.02 x10^3/uL (0-0.4); EOSINOPHILS % (AUTO) 0 % (1-7); LYMPHOCYTES # (AUTO) 0.76 x10^3/uL (1-3.4); LYMPHOCYTES % (AUTO) 7 % (22-44); MD SCAN; MONOCYTES % (AUTO) 4 % (2-9); NEUTROPHILS # (AUTO) 9.85 x10^3/uL (1.8-6.8); NEUTROPHILS % (AUTO) 89 % (42-75)
[2019-10-06] MEDS: LORATADINE 10 MG TABLET PO SCH (08:53)
[2019-10-06] MEDS: SENNA/DOCUSATE TABLET PO SCH (08:53)
[2019-10-06] MEDS: POTASSIUM CHLORIDE 10 MEQ TABLET.ER PO SCH (08:53)
[2019-10-06] MEDS: LOSARTAN 50MG TABLET PO SCH (08:55)
[2019-10-06 09:00] VITALS: BP 146/76
[2019-10-06] MEDS: CIPROFLOXACIN 500 MG TABLET PO SCH ×2 (11:59→21:55)
[2019-10-06] MEDS: FUROSEMIDE 40 MG TABLET PO SCH (12:00)
[2019-10-06 13:46] VITALS: BP 163/83
[2019-10-06] MEDS: LINEZOLID PMX 600MG/300ML 300 ML IV SCH (17:00)
[2019-10-06] MEDS ORDERED: FUROSEMIDE 20 MG TABLET PO SCH (17:00)
[2019-10-06 18:44] VITALS: BP 167/85
[2019-10-07 00:32] VITALS: BP 132/72
[2019-10-07] MEDS: INSULIN LISPRO 100 UNITS/ML, PEN SQ-INSULIN SCH ×4 (03:00→16:20)
[2019-10-07] MEDS: LINEZOLID PMX 600MG/300ML 300 ML IV SCH (05:04)
[2019-10-07 05:25] LABS: ANION GAP 3 mmol/L (5-15); CHLORIDE 101 mmol/L (98-107); CREATININE 1.18 mg/dL (0.7-1.3)
[2019-10-07 05:32] LABS: MEAN CORPUSCULAR HEMOGLOBIN 32.9 pg (27.5-34.5); MEAN CORPUSCULAR HGB CONC 31.5 g/dL (33.2-36.2); MEAN CORPUSCULAR VOLUME 104.4 fL (81-97); RED BLOOD COUNT 3.13 x10^6/uL (4.38-5.82); RED CELL DISTRIBUTION WIDTH 22.1 % (9.4-14.8)
[2019-10-07] MEDS: CARVEDILOL 12.5 MG TABLET PO SCH (05:54)
[2019-10-07 06:24] LABS: MEAN PLATELET VOLUME 10.9 fL (7.4-10.4)
[2019-10-07 06:25] LABS: BASOPHILS # (AUTO) 0.02 x10^3/uL (0-0.1); BASOPHILS % (AUTO) 0 % (0-1); EOSINOPHILS # (AUTO) 0.02 x10^3/uL (0-0.4); EOSINOPHILS % (AUTO) 0 % (1-7); LYMPHOCYTES # (AUTO) 0.91 x10^3/uL (1-3.4); LYMPHOCYTES % (AUTO) 8 % (22-44); MD SCAN; MONOCYTES # (AUTO) 0.66 x10^3/uL (0.2-0.8); MONOCYTES % (AUTO) 6 % (2-9); NEUTROPHILS % (AUTO) 86 % (42-75)
[2019-10-07 06:26] LABS: PLATELET COUNT 33 x10^3/uL (130-400)
[2019-10-07] MEDS ORDERED: OMEPRAZOLE 20 MG CAPSULE.DR PO SCH (06:30)
[2019-10-07 07:37] VITALS: BP 162/83
[2019-10-07] MEDS: FUROSEMIDE 40 MG TABLET PO SCH (08:14)
[2019-10-07] MEDS: POTASSIUM CHLORIDE 10 MEQ TABLET.ER PO SCH (08:14)
[2019-10-07] MEDS: LOSARTAN 50MG TABLET PO SCH (08:15)
[2019-10-07] MEDS: LORATADINE 10 MG TABLET PO SCH (08:15)
[2019-10-07] MEDS: CIPROFLOXACIN 500 MG TABLET PO SCH (08:20)
[2019-10-07] MEDS: SENNA/DOCUSATE TABLET PO SCH (09:00)
[2019-10-07] MEDS ORDERED: LINE600T12 PO (09:05)
[2019-10-07] MEDS ORDERED: CIPR500T87 PO (09:06)
[2019-10-07] MEDS ORDERED: LOSA50TA2 PO (12:52)
[2019-10-07 12:53] VITALS: BP_SYST 177; BP_SYST 179; BP_DIAS 86; BP_DIAS 88
[2019-10-07 16:49] VITALS: BP 170/97
== END 2019-10-07 17:28 | DRG 208 ==
LOC: ED 16:17 → EDIP 16:36 → 4EST 17:49 → 5SO 18:26 → CCU 09-29 09:10 → ICU 09-30 19:55 → 3N 10-01 13:59
PROVIDERS: ADMIT Internal Medicine; ATTEND Hospitalist
PROC: 5A1945Z Respiratory Ventilation, 24-96 Consecutive Hours (ICD-10-PCS; principal; 2019-09-29)
PROC: 0BH17EZ Insertion of Endotracheal Airway into Trachea, Via Natural or Artificial Opening (ICD-10-PCS; 2019-09-29)
PROC: 0T9B70Z Drainage of Bladder with Drainage Device, Via Natural or Artificial Opening (ICD-10-PCS; 2019-09-29)
PROC: 5A09357 Assistance with Respiratory Ventilation, Less than 24 Consecutive Hours, Continuous Positive Airway Pressure (ICD-10-PCS; 2019-09-29)
PROC: 0B9J8ZX Drainage of Left Lower Lung Lobe, Via Natural or Artificial Opening Endoscopic, Diagnostic (ICD-10-PCS; 2019-09-29)
PROC: 0B9D8ZX Drainage of Right Middle Lung Lobe, Via Natural or Artificial Opening Endoscopic, Diagnostic (ICD-10-PCS; 2019-09-29)
PROC: 0B9F8ZX Drainage of Right Lower Lung Lobe, Via Natural or Artificial Opening Endoscopic, Diagnostic (ICD-10-PCS; 2019-09-29)
DX: J96.01 Acute respiratory failure with hypoxia (principal); G93.41 Metabolic encephalopathy; J15.211 Pneumonia due to Methicillin susceptible Staphylococcus aureus; J15.8 Pneumonia due to other specified bacteria; N17.9 Acute kidney failure, unspecified; Z68.41 Body mass index [BMI] 40.0-44.9, adult; I13.0 Hypertensive heart and chronic kidney disease with heart failure and stage 1 through stage 4 chronic kidney disease, or unspecified chronic kidney disease; Z99.11 Dependence on respirator [ventilator] status; J96.02 Acute respiratory failure with hypercapnia; D53.9 Nutritional anemia, unspecified; D69.6 Thrombocytopenia, unspecified; E66.9 Obesity, unspecified; G47.30 Sleep apnea, unspecified; I77.810 Thoracic aortic ectasia; N18.3 Chronic kidney disease, stage 3 (moderate); N40.0 Benign prostatic hyperplasia without lower urinary tract symptoms; Z66 Do not resuscitate; Z96.651 Presence of right artificial knee joint; G47.33 Obstructive sleep apnea (adult) (pediatric); Z87.891 Personal history of nicotine dependence; Z90.49 Acquired absence of other specified parts of digestive tract; Z79.899 Other long term (current) drug therapy
CPT/HCPCS: 31624; 36415; 36600; 71045; 71275; 80048; 80053; 81001; 82330; 82607; 82803; 82962; 83605; 83735; 83880; 84100; 84132; 84145; 84443; 84478; 84484; 85025; 85610; 85730; 87040; 87070; 87077; 87081; 87102; 87147; 87186; 87205; 93005; 93306; 93922; 94002; 94003; 94150; 94640; 94660; 96374; G0378; J0295; J0456; J0696; J1940; J2020; J2704; J7620; J7626; Q9967; J1815; J2920; J7030; J7050; J7512; Q0163

== ENCOUNTER 2020-02-06 16:27 | Emergency (ER) | payer MEDICARE ==
[~2020-02-06] VITALS: Ht 177.8 cm; Wt 120.5 kg
[~2020-02-06 16:27] MED LIST changes: +AMLO5TAB10 PO; +AMPI3VIA IV; +CARV12.52 PO; +CIPR500T87 PO; +FLUT9.9S NS; +FURO-93 PO; +FURO40TA6 PO; +LASIX PO; +LINE600T12 PO; +LORA10TA62 PO; +LOSA50TA14 PO; +LOSA50TA2 PO; +POTA10CA PO; +POTA10PI PO; +PRED10TA PO
[2020-02-06 17:12] LABS: ALANINE AMINOTRANSFERASE 37 U/L (12-78); ALBUMIN 2.2 g/dL (3.4-5.0); ANION GAP 4 mmol/L (5-15); CALCIUM 8.3 mg/dL (8.5-10.1); CHLORIDE 101 mmol/L (98-107); CREATININE 1.23 mg/dL (0.7-1.3)
[2020-02-06 17:15] LABS: SALICYLATE LEVEL < 1.7 mg/dL (2.8-20.0)
[2020-02-06 17:22] LABS: ALKALINE PHOSPHATASE 94 U/L (45-117); BILIRUBIN,TOTAL 0.6 mg/dL (0.2-1.0); TOTAL PROTEIN 7.9 g/dL (6.4-8.2)
[2020-02-06 17:32] LABS: BASOPHILS % (AUTO) 0 % (0-1); EOSINOPHILS # (AUTO) 0.01 x10^3/uL (0-0.4); EOSINOPHILS % (AUTO) 0 % (1-7); LYMPHOCYTES # (AUTO) 0.98 x10^3/uL (1-3.4); LYMPHOCYTES % (AUTO) 12 % (22-44); MD SCAN; MEAN CORPUSCULAR HEMOGLOBIN 32.9 pg (27.5-34.5); MEAN CORPUSCULAR HGB CONC 32.3 g/dL (33.2-36.2); MEAN CORPUSCULAR VOLUME 102.1 fL (81-97); MONOCYTES # (AUTO) 0.15 x10^3/uL (0.2-0.8); MONOCYTES % (AUTO) 2 % (2-9); NEUTROPHILS # (AUTO) 7.22 x10^3/uL (1.8-6.8); NEUTROPHILS % (AUTO) 86 % (42-75); RED BLOOD COUNT 2.61 x10^6/uL (4.38-5.82); RED CELL DISTRIBUTION WIDTH 21.8 % (9.4-14.8)
[2020-02-06 17:35] LABS: MEAN PLATELET VOLUME 10.1 fL (7.4-10.4); PLATELET COUNT 34 x10^3/uL (130-400)
--- NOTE | 2020-02-06 17:59 | NUR ---
pt resting in gurney, watching tv, even and unlabored respirations, NAD, denies additional need at this time, waiting on UA results, WCTM
[2020-02-06 18:12] LABS: MICROSCOPIC AUTO
[2020-02-06 18:15] LABS: CULTURE INDICATED? NO
[2020-02-06 18:24] LABS: AMPHETAMINE SCREEN, URINE Negative (Negative); BARBITURATE SCREEN, URINE Negative (Negative); BENZODIAZEPINE SCREEN, URINE Negative (Negative); CANNABINOID SCREEN, URINE Negative (Negative); COCAINE SCREEN, URINE Negative (Negative); METHADONE SCREEN, URINE Negative (Negative); OPIATE SCREEN, URINE Negative (Negative)
[2020-02-06 18:39] VITALS: BP 143/78
--- NOTE | 2020-02-06 19:12 | NUR ---
Patient/Caregiver given discharge instructions and they have confirmed that they understand the instructions. Patient left via wheelchair and walked to cab. Denies additional questions.
== END 2020-02-06 19:12 | disposition home or self-care (01) ==
LOC: ED 16:41
DX: R44.1 Visual hallucinations (principal); R94.31 Abnormal electrocardiogram [ECG] [EKG]; I10 Essential (primary) hypertension
CPT/HCPCS: 36415; 80053; 80307; 81001; 84443; 85025; 93005; 99284

== ENCOUNTER 2020-02-10 10:32 | Inpatient (IN) | payer MEDICARE ==
[~2020-02-10] VITALS: Ht 177.8 cm; Wt 120.7 kg
--- NOTE | 2020-02-10 11:17 | NUR ---
PT ASLEEP ON GURNEY. RR EVEN AND UNLABORED.
[2020-02-10] MEDS ORDERED: FUROSEMIDE 40 MG/4 ML IVPush ONE (11:30)
[2020-02-10] MEDS ORDERED: NITROGLYCERIN OINT 2%, 1GM TP ONE (11:30)
[2020-02-10 11:36] LABS: ALBUMIN 2.2 g/dL (3.4-5.0); ANION GAP 3 mmol/L (5-15); CALCIUM 8.9 mg/dL (8.5-10.1); CHLORIDE 101 mmol/L (98-107); CREATININE 1.44 mg/dL (0.7-1.3)
[2020-02-10] MEDS ORDERED: FUROSEMIDE 40 MG/4 ML ONE (11:39)
[2020-02-10 11:40] LABS: TROPONIN I < 0.015 ng/mL (0.000-0.045)
[2020-02-10 11:46] LABS: MEAN CORPUSCULAR HEMOGLOBIN 32.5 pg (27.5-34.5); MEAN CORPUSCULAR HGB CONC 31.8 g/dL (33.2-36.2); MEAN CORPUSCULAR VOLUME 102.2 fL (81-97); RED BLOOD COUNT 2.75 x10^6/uL (4.38-5.82); RED CELL DISTRIBUTION WIDTH 21.6 % (9.4-14.8)
[2020-02-10 11:52] LABS: MEAN PLATELET VOLUME 10.3 fL (7.4-10.4)
[2020-02-10 11:54] LABS: PLATELET COUNT 29 x10^3/uL (130-400)
[2020-02-10 11:55] LABS: MD YES
[2020-02-10 11:57] LABS: LYMPH#(MANUAL) 0.66 x10^3/uL (1-3.4); LYMPHS% (MANUAL) 8 % (22-44); METAMYELOCYTES# (MANUAL) 0.08 x10^3/uL (0-0); METAMYELOCYTES% (MANUAL) 1 % (0-1); MONOS#(MANUAL) 0.66 x10^3/uL (0.3-2.7); MONOS% (MANUAL) 8 % (2-9); SEG#(MANUAL) 6.81 x10^3/uL (1.8-6.8); SEGS% (MANUAL) 82 % (42-75)
--- NOTE | 2020-02-10 11:57 | NUR ---
PT MEDICATED PER [facility].
[2020-02-10 11:58] LABS: OTHER CELLS # (MANUAL) 0.08 x10^3/uL (0-0); OTHER CELLS % (MANUAL) 1 % (0-0)
[2020-02-10 11:59] LABS: <PLATELET ESTIMATE> DECREASED; ANISOCYTOSIS 1+; PMNS WITH VACUOLES 1+; POLYCHROMASIA 1+
[2020-02-10 12:00] LABS: <PLT MORPHOLOGY> NORMAL PLT MORPH
--- NOTE | 2020-02-10 12:14 | NUR ---
PT REQUESTING RN TO LEAVE URINAL BETWEEN LEGS. PTS PANTS TAKEN OFF. ALL BELONGINGS PLACED IN PERSONAL BELONGING BAG. WILFRID PLACED UNDER PT. AWAITING ADMIT ORDER.
[2020-02-10] MEDS ORDERED: SODIUM CHLORIDE FLUSH 10ML SYR IVF PRN (12:30)
--- NOTE | 2020-02-10 12:40 | NUR ---
[facility] AT BEDSIDE.
--- NOTE | 2020-02-10 12:54 | NUR ---
REPORT TO SATNAM KNOTT.
[2020-02-10] MEDS ORDERED: BACLOFEN 10 MG TABLET PO PRN (13:00)
[2020-02-10] MEDS ORDERED: ONDANSETRON 2MG/ML, 2ML IVPush PRN (13:00)
[2020-02-10] MEDS ORDERED: ONDANSETRON ODT 4 MG PO PRN (13:00)
[2020-02-10] MEDS ORDERED: HEPARIN 5,000 UNITS/ML, 1ML SQ SCH (13:00)
[2020-02-10] MEDS ORDERED: ACETAMINOPHEN 325 MG TABLET PO PRN (13:00)
[2020-02-10] MEDS ORDERED: FLUTICASONE NASAL SPRAY 16GM NAS SCH (13:00)
[2020-02-10] MEDS ORDERED: GABAPENTIN 300 MG CAPSULE PO PRN (13:00)
[2020-02-10] MEDS ORDERED: hydrALAzine 20 MG/ML, 1ML IVPush PRN (13:00)
[2020-02-10] MEDS ORDERED: morphine SULFATE 10 MG/ML, 1ML IVPush PRN (13:00)
[2020-02-10 16:05] VITALS: BP 146/80
[2020-02-10] MEDS: FUROSEMIDE 40 MG/4 ML IV SCH (18:42)
[2020-02-10 19:28] LABS: TROPONIN I < 0.015 ng/mL (0.000-0.045)
[2020-02-11 04:57] LABS: ANION GAP 3 mmol/L (5-15); CALCIUM 8.7 mg/dL (8.5-10.1); CHLORIDE 100 mmol/L (98-107); CREATININE 1.66 mg/dL (0.7-1.3)
[2020-02-11 04:59] LABS: % IRON SATURATION 26 % (20-55); IRON LEVEL 46 mcg/dL (65-175); TOTAL IRON BINDING CAPACITY 179 mcg/dL (250-450)
[2020-02-11 05:50] LABS: MD YES
[2020-02-11 05:51] LABS: MEAN CORPUSCULAR HEMOGLOBIN 32.2 pg (27.5-34.5); MEAN CORPUSCULAR VOLUME 104.2 fL (81-97); RED BLOOD COUNT 2.84 x10^6/uL (4.38-5.82); RED CELL DISTRIBUTION WIDTH 21.3 % (9.4-14.8)
[2020-02-11 05:52] LABS: MEAN PLATELET VOLUME 9.3 fL (7.4-10.4); PLATELET COUNT 29 x10^3/uL (130-400)
[2020-02-11 05:56] LABS: BAND#(MANUAL) 0.19 x10^3/uL; BANDS%(MANUAL) 2 % (0-7); LYMPH#(MANUAL) 0.86 x10^3/uL (1-3.4); LYMPHS% (MANUAL) 9 % (22-44); METAMYELOCYTES# (MANUAL) 0.38 x10^3/uL (0-0); METAMYELOCYTES% (MANUAL) 4 % (0-1); MONOS#(MANUAL) 0.38 x10^3/uL (0.3-2.7); MONOS% (MANUAL) 4 % (2-9); MYELOCYTES% (MANUAL) 1 % (0-0); NRBC % (MANUAL) 1 % (0-1); SEG#(MANUAL) 7.68 x10^3/uL (1.8-6.8); SEGS% (MANUAL) 80 % (42-75)
[2020-02-11 05:57] LABS: <PLATELET ESTIMATE> DECREASED; <PLT MORPHOLOGY> NORMAL PLT MORPH; ANISOCYTOSIS 1+; POLYCHROMASIA 1+
[2020-02-11] MEDS: FUROSEMIDE 40 MG/4 ML IV SCH ×2 (07:59→17:28)
[2020-02-11 12:44] LABS: FIO2 50 %
[2020-02-12 05:04] LABS: CHLORIDE 95 mmol/L (98-107)
[2020-02-12 05:10] LABS: ALANINE AMINOTRANSFERASE 25 U/L (12-78); ALBUMIN 1.9 g/dL (3.4-5.0); ALKALINE PHOSPHATASE 83 U/L (45-117); ANION GAP 3 mmol/L (5-15); BILIRUBIN,TOTAL 0.5 mg/dL (0.2-1.0); CALCIUM 8.4 mg/dL (8.5-10.1); CREATININE 1.62 mg/dL (0.7-1.3); TOTAL PROTEIN 7.3 g/dL (6.4-8.2)
[2020-02-12 05:16] LABS: MEAN CORPUSCULAR HEMOGLOBIN 32.4 pg (27.5-34.5); MEAN CORPUSCULAR VOLUME 104.5 fL (81-97); RED BLOOD COUNT 2.51 x10^6/uL (4.38-5.82); RED CELL DISTRIBUTION WIDTH 21.8 % (9.4-14.8)
[2020-02-12 05:48] LABS: MEAN PLATELET VOLUME 9.7 fL (7.4-10.4)
[2020-02-12 05:49] LABS: MD YES
[2020-02-12 05:51] LABS: ANISOCYTOSIS 1+; BAND#(MANUAL) 0.07 x10^3/uL; BANDS%(MANUAL) 1 % (0-7); LYMPH#(MANUAL) 1.22 x10^3/uL (1-3.4); LYMPHS% (MANUAL) 17 % (22-44); METAMYELOCYTES# (MANUAL) 0.14 x10^3/uL (0-0); METAMYELOCYTES% (MANUAL) 2 % (0-1); MONOS#(MANUAL) 0.29 x10^3/uL (0.3-2.7); MONOS% (MANUAL) 4 % (2-9); MYELOCYTES# (MANUAL) 0.14 x10^3/uL (0-0); MYELOCYTES% (MANUAL) 2 % (0-0); POLYCHROMASIA 1+; SEG#(MANUAL) 5.33 x10^3/uL (1.8-6.8); SEGS% (MANUAL) 74 % (42-75)
[2020-02-12 05:52] LABS: <PLATELET ESTIMATE> DECREASED; <PLT MORPHOLOGY> NORMAL PLT MORPH; PLATELET COUNT 28 x10^3/uL (130-400)
[2020-02-12] MEDS: FUROSEMIDE 40 MG/4 ML IV SCH ×2 (08:58→18:16)
[2020-02-12 20:42] LABS: MICROSCOPIC AUTO
[2020-02-12 20:46] LABS: CULTURE INDICATED? NO
[2020-02-12 20:50] LABS: OCCULT BLOOD NEGATIVE (NEGATIVE)
[2020-02-12] MEDS ORDERED: SODIUM CHLORIDE NASAL SPRAY 45ML BOTTLE NAS PRN (21:30)
[2020-02-13] MEDS: FUROSEMIDE 40 MG/4 ML IV SCH ×2 (08:26→16:55)
[2020-02-13 17:38] VITALS: BP 176/63
[2020-02-13 18:24] VITALS: BP 146/73
[2020-02-14 00:40] VITALS: BP 129/62
[2020-02-14 06:37] LABS: ANION GAP 5 mmol/L (5-15); CALCIUM 8.9 mg/dL (8.5-10.1); CHLORIDE 92 mmol/L (98-107); MEAN CORPUSCULAR HEMOGLOBIN 32.9 pg (27.5-34.5); MEAN CORPUSCULAR HGB CONC 32.2 g/dL (33.2-36.2); MEAN CORPUSCULAR VOLUME 102.1 fL (81-97); MEAN PLATELET VOLUME 9.8 fL (7.4-10.4); RED BLOOD COUNT 2.97 x10^6/uL (4.38-5.82); RED CELL DISTRIBUTION WIDTH 20.8 % (9.4-14.8)
[2020-02-14 06:39] LABS: PLATELET COUNT 25 x10^3/uL (130-400)
[2020-02-14 07:22] LABS: MD YES
[2020-02-14 07:26] LABS: BAND#(MANUAL) 0.38 x10^3/uL; BANDS%(MANUAL) 5 % (0-7); BASOS#(MANUAL) 0.15 x10^3/uL (0-0.1); BASOS% (MANUAL) 2 % (0-1); EOS#(MANUAL) 0.08 x10^3/uL (0.0-0.4); EOS% (MANUAL) 1 % (1-7); LYMPH#(MANUAL) 0.98 x10^3/uL (1-3.4); LYMPHS% (MANUAL) 13 % (22-44); METAMYELOCYTES# (MANUAL) 0.23 x10^3/uL (0-0); METAMYELOCYTES% (MANUAL) 3 % (0-1); MONOS#(MANUAL) 0.68 x10^3/uL (0.3-2.7); MONOS% (MANUAL) 9 % (2-9); MYELOCYTES# (MANUAL) 0.38 x10^3/uL (0-0); MYELOCYTES% (MANUAL) 5 % (0-0); SEG#(MANUAL) 4.65 x10^3/uL (1.8-6.8); SEGS% (MANUAL) 62 % (42-75)
[2020-02-14 07:27] LABS: ANISOCYTOSIS 1+; POLYCHROMASIA 1+
[2020-02-14 07:28] LABS: <PLATELET ESTIMATE> DECREASED; <PLT MORPHOLOGY> NORMAL PLT MORPH
[2020-02-14 07:36] VITALS: BP 134/79
[2020-02-14] MEDS ORDERED: FUROSEMIDE 20 MG/2 ML IV SCH (09:00)
[2020-02-14 12:01] VITALS: BP 123/74
[2020-02-14 19:55] VITALS: BP 123/69
[2020-02-15 00:45] VITALS: BP 123/68
[2020-02-15 05:17] LABS: ALBUMIN 1.9 g/dL (3.4-5.0); ANION GAP 1 mmol/L (5-15); CALCIUM 8.6 mg/dL (8.5-10.1); CHLORIDE 93 mmol/L (98-107)
[2020-02-15 05:20] LABS: ALANINE AMINOTRANSFERASE 21 U/L (12-78); ALKALINE PHOSPHATASE 71 U/L (45-117); BILIRUBIN,TOTAL 0.7 mg/dL (0.2-1.0); CREATININE 1.09 mg/dL (0.7-1.3); TOTAL PROTEIN 7.6 g/dL (6.4-8.2)
[2020-02-15 05:33] LABS: MEAN CORPUSCULAR HEMOGLOBIN 33.1 pg (27.5-34.5); MEAN CORPUSCULAR VOLUME 103.3 fL (81-97); RED BLOOD COUNT 2.67 x10^6/uL (4.38-5.82); RED CELL DISTRIBUTION WIDTH 21.4 % (9.4-14.8)
[2020-02-15 06:08] LABS: MD YES; MEAN PLATELET VOLUME 9.5 fL (7.4-10.4)
[2020-02-15 06:10] LABS: ANISOCYTOSIS 1+; BAND#(MANUAL) 0.12 x10^3/uL; BANDS%(MANUAL) 2 % (0-7); EOS#(MANUAL) 0.06 x10^3/uL (0.0-0.4); EOS% (MANUAL) 1 % (1-7); LYMPH#(MANUAL) 0.84 x10^3/uL (1-3.4); LYMPHS% (MANUAL) 14 % (22-44); METAMYELOCYTES# (MANUAL) 0.18 x10^3/uL (0-0); METAMYELOCYTES% (MANUAL) 3 % (0-1); MONOS#(MANUAL) 0.36 x10^3/uL (0.3-2.7); MONOS% (MANUAL) 6 % (2-9); MYELOCYTES# (MANUAL) 0.12 x10^3/uL (0-0); MYELOCYTES% (MANUAL) 2 % (0-0); PLATELET COUNT 18 x10^3/uL (130-400); SEG#(MANUAL) 4.32 x10^3/uL (1.8-6.8); SEGS% (MANUAL) 72 % (42-75)
[2020-02-15 06:11] LABS: <PLATELET ESTIMATE> DECREASED; <PLT MORPHOLOGY> NORMAL PLT MORPH; POLYCHROMASIA 1+
[2020-02-15 07:07] VITALS: BP 123/71
[2020-02-15] MEDS ORDERED: LORazepam 0.5MG TABLET PO ONE (09:00)
[2020-02-15] MEDS ORDERED: OXYcodone/APAP 5/325MG TABLET PO ONE (09:00)
[2020-02-15] MEDS ORDERED: GADOTERATE 10 MMOL/20 ML VIAL ONE (10:26)
[2020-02-15] MEDS ORDERED: GADOTERATE 2.5 MMOL/5 ML VIAL ONE (10:26)
[2020-02-15 12:41] VITALS: BP 150/72
[2020-02-15 20:11] VITALS: BP 126/75
[2020-02-16 01:55] VITALS: BP 137/79
[2020-02-16] MEDS ORDERED: SODIUM CHLORIDE NASAL SPRAY 45ML BOTTLE NAS PRN (05:00)
[2020-02-16 05:58] LABS: MEAN CORPUSCULAR HEMOGLOBIN 32.3 pg (27.5-34.5); MEAN CORPUSCULAR HGB CONC 31.6 g/dL (33.2-36.2); MEAN CORPUSCULAR VOLUME 102.2 fL (81-97); MEAN PLATELET VOLUME 9.2 fL (7.4-10.4); RED BLOOD COUNT 2.74 x10^6/uL (4.38-5.82)
[2020-02-16 06:01] LABS: ALANINE AMINOTRANSFERASE 19 U/L (12-78); ALBUMIN 2.1 g/dL (3.4-5.0); ANION GAP 3 mmol/L (5-15); CALCIUM 9.2 mg/dL (8.5-10.1); CHLORIDE 90 mmol/L (98-107); CREATININE 1.09 mg/dL (0.7-1.3)
[2020-02-16 06:03] LABS: ALKALINE PHOSPHATASE 73 U/L (45-117); BILIRUBIN,TOTAL 0.4 mg/dL (0.2-1.0)
[2020-02-16 06:06] LABS: PLATELET COUNT 19 x10^3/uL (130-400)
[2020-02-16 06:12] LABS: MD YES
[2020-02-16 06:14] LABS: BAND#(MANUAL) 0.36 x10^3/uL; BANDS%(MANUAL) 6 % (0-7); EOS#(MANUAL) 0.06 x10^3/uL (0.0-0.4); EOS% (MANUAL) 1 % (1-7); LYMPH#(MANUAL) 0.72 x10^3/uL (1-3.4); LYMPHS% (MANUAL) 12 % (22-44); METAMYELOCYTES# (MANUAL) 0.06 x10^3/uL (0-0); METAMYELOCYTES% (MANUAL) 1 % (0-1); MONOS% (MANUAL) 5 % (2-9); MYELOCYTES# (MANUAL) 0.06 x10^3/uL (0-0); MYELOCYTES% (MANUAL) 1 % (0-0); NRBC % (MANUAL) 1 % (0-1); SEG#(MANUAL) 4.44 x10^3/uL (1.8-6.8); SEGS% (MANUAL) 74 % (42-75)
[2020-02-16 06:15] LABS: ANISOCYTOSIS 1+
[2020-02-16 06:16] LABS: <PLATELET ESTIMATE> DECREASED; POLYCHROMASIA 1+
[2020-02-16 06:17] LABS: <PLT MORPHOLOGY> NORMAL PLT MORPH
[2020-02-16 06:25] VITALS: BP 144/85
[2020-02-16 12:19] VITALS: BP 144/73
[2020-02-16] MEDS: FUROSEMIDE 20 MG/2 ML IV SCH (12:37)
[2020-02-16 20:00] VITALS: BP 122/57
[2020-02-17 01:08] VITALS: BP 123/71
[2020-02-17] MEDS ORDERED: DIPHENHYDRAMINE 25 MG CAPSULE ONE (01:10)
[2020-02-17 06:12] LABS: ALBUMIN 2.1 g/dL (3.4-5.0); ANION GAP 5 mmol/L (5-15); CALCIUM 9.3 mg/dL (8.5-10.1); CHLORIDE 95 mmol/L (98-107)
[2020-02-17 06:16] LABS: ALANINE AMINOTRANSFERASE 20 U/L (12-78); ALKALINE PHOSPHATASE 73 U/L (45-117); BILIRUBIN,TOTAL 0.6 mg/dL (0.2-1.0); CREATININE 1.17 mg/dL (0.7-1.3); TOTAL PROTEIN 8.3 g/dL (6.4-8.2)
[2020-02-17 06:29] LABS: MD YES; MEAN CORPUSCULAR HEMOGLOBIN 32.4 pg (27.5-34.5); MEAN CORPUSCULAR HGB CONC 31.5 g/dL (33.2-36.2); MEAN CORPUSCULAR VOLUME 102.8 fL (81-97); RED BLOOD COUNT 2.84 x10^6/uL (4.38-5.82); RED CELL DISTRIBUTION WIDTH 20.9 % (9.4-14.8)
[2020-02-17 06:31] LABS: MEAN PLATELET VOLUME 8.4 fL (7.4-10.4); PLATELET COUNT 18 x10^3/uL (130-400)
[2020-02-17 06:32] LABS: BAND#(MANUAL) 0.12 x10^3/uL; BANDS%(MANUAL) 2 % (0-7); LYMPH#(MANUAL) 1.04 x10^3/uL (1-3.4); LYMPHS% (MANUAL) 17 % (22-44); METAMYELOCYTES# (MANUAL) 0.06 x10^3/uL (0-0); METAMYELOCYTES% (MANUAL) 1 % (0-1); MONOS#(MANUAL) 0.24 x10^3/uL (0.3-2.7); MONOS% (MANUAL) 4 % (2-9); MYELOCYTES# (MANUAL) 0.12 x10^3/uL (0-0); MYELOCYTES% (MANUAL) 2 % (0-0); SEG#(MANUAL) 4.51 x10^3/uL (1.8-6.8); SEGS% (MANUAL) 74 % (42-75)
[2020-02-17 06:33] LABS: ANISOCYTOSIS 1+; POLYCHROMASIA 1+
[2020-02-17 06:34] LABS: <PLATELET ESTIMATE> DECREASED; <PLT MORPHOLOGY> NORMAL PLT MORPH
[2020-02-17 07:43] VITALS: BP 118/69
[2020-02-17] MEDS: FUROSEMIDE 20 MG/2 ML IV SCH (09:43)
[2020-02-17 12:38] VITALS: BP 117/70
[2020-02-17 20:07] VITALS: BP 139/79
[2020-02-17] MEDS ORDERED: DIPHENHYDRAMINE 25 MG CAPSULE PO ONE (21:00)
[2020-02-18 00:58] VITALS: BP 119/72
[2020-02-18 06:14] LABS: ALBUMIN 2.2 g/dL (3.4-5.0); ANION GAP 1 mmol/L (5-15); CALCIUM 9.6 mg/dL (8.5-10.1); CHLORIDE 96 mmol/L (98-107)
[2020-02-18 06:18] VITALS: BP 98/57
[2020-02-18 06:19] LABS: ALANINE AMINOTRANSFERASE 22 U/L (12-78); ALKALINE PHOSPHATASE 75 U/L (45-117); BILIRUBIN,TOTAL 0.4 mg/dL (0.2-1.0); CREATININE 1.47 mg/dL (0.7-1.3); TOTAL PROTEIN 8.4 g/dL (6.4-8.2)
[2020-02-18 06:23] LABS: MEAN CORPUSCULAR HEMOGLOBIN 32.5 pg (27.5-34.5); MEAN CORPUSCULAR HGB CONC 31.7 g/dL (33.2-36.2); MEAN CORPUSCULAR VOLUME 102.7 fL (81-97); RED BLOOD COUNT 2.88 x10^6/uL (4.38-5.82); RED CELL DISTRIBUTION WIDTH 21.7 % (9.4-14.8)
[2020-02-18 06:49] LABS: MD YES
[2020-02-18 06:52] LABS: ANISOCYTOSIS 1+; BAND#(MANUAL) 0.07 x10^3/uL; BANDS%(MANUAL) 1 % (0-7); EOS#(MANUAL) 0.14 x10^3/uL (0.0-0.4); EOS% (MANUAL) 2 % (1-7); LYMPH#(MANUAL) 1.47 x10^3/uL (1-3.4); LYMPHS% (MANUAL) 21 % (22-44); METAMYELOCYTES# (MANUAL) 0.07 x10^3/uL (0-0); METAMYELOCYTES% (MANUAL) 1 % (0-1); MONOS#(MANUAL) 0.14 x10^3/uL (0.3-2.7); MONOS% (MANUAL) 2 % (2-9); POLYCHROMASIA 1+; SEG#(MANUAL) 5.11 x10^3/uL (1.8-6.8); SEGS% (MANUAL) 73 % (42-75)
[2020-02-18 06:53] LABS: <PLATELET ESTIMATE> DECREASED; <PLT MORPHOLOGY> NORMAL PLT MORPH
[2020-02-18 06:57] LABS: MEAN PLATELET VOLUME 8.4 fL (7.4-10.4)
[2020-02-18 07:02] LABS: PLATELET COUNT 21 x10^3/uL (130-400)
[2020-02-18] MEDS: FUROSEMIDE 20 MG/2 ML IV SCH (08:59)
[2020-02-18 13:19] VITALS: BP 111/66
[2020-02-18 17:10] LABS: MICROSCOPIC AUTO
[2020-02-18 17:15] LABS: CULTURE INDICATED? YES
[2020-02-18 18:15] VITALS: BP 117/72
[2020-02-19 00:39] VITALS: BP 109/65
[2020-02-19 06:11] LABS: ALANINE AMINOTRANSFERASE 23 U/L (12-78); ALBUMIN 2.2 g/dL (3.4-5.0); ANION GAP 4 mmol/L (5-15); CALCIUM 9.6 mg/dL (8.5-10.1); CHLORIDE 98 mmol/L (98-107); CREATININE 1.42 mg/dL (0.7-1.3)
[2020-02-19 06:13] LABS: ALKALINE PHOSPHATASE 74 U/L (45-117); BILIRUBIN,TOTAL 0.4 mg/dL (0.2-1.0); TOTAL PROTEIN 8.6 g/dL (6.4-8.2)
[2020-02-19 06:22] LABS: MEAN CORPUSCULAR HGB CONC 32.2 g/dL (33.2-36.2); MEAN CORPUSCULAR VOLUME 102.3 fL (81-97); RED CELL DISTRIBUTION WIDTH 21.5 % (9.4-14.8)
[2020-02-19 06:23] LABS: MD YES; MEAN PLATELET VOLUME 9.8 fL (7.4-10.4); PLATELET COUNT 24 x10^3/uL (130-400)
[2020-02-19 06:24] LABS: BAND#(MANUAL) 0.14 x10^3/uL; BANDS%(MANUAL) 2 % (0-7); EOS#(MANUAL) 0.07 x10^3/uL (0.0-0.4); EOS% (MANUAL) 1 % (1-7); LYMPHS% (MANUAL) 18 % (22-44); METAMYELOCYTES# (MANUAL) 0.14 x10^3/uL (0-0); METAMYELOCYTES% (MANUAL) 2 % (0-1); MONOS#(MANUAL) 0.36 x10^3/uL (0.3-2.7); MONOS% (MANUAL) 5 % (2-9); MYELOCYTES# (MANUAL) 0.07 x10^3/uL (0-0); MYELOCYTES% (MANUAL) 1 % (0-0); NRBC % (MANUAL) 1 % (0-1); SEG#(MANUAL) 5.11 x10^3/uL (1.8-6.8); SEGS% (MANUAL) 71 % (42-75)
[2020-02-19 06:25] LABS: <PLATELET ESTIMATE> DECREASED; <PLT MORPHOLOGY> NORMAL PLT MORPH; ANISOCYTOSIS 1+; POLYCHROMASIA 1+
[2020-02-19 07:01] VITALS: BP 109/65
[2020-02-19 08:40] VITALS: BP 111/77
[2020-02-19] MEDS: FUROSEMIDE 20 MG/2 ML IV SCH (08:48)
[2020-02-19 12:00] VITALS: BP 121/78
[2020-02-19 20:08] VITALS: BP 120/64
[2020-02-20] VITALS (9 sets, daily range): BP systolic 107–134; BP diastolic 62–76
[2020-02-20 05:54] LABS: MEAN CORPUSCULAR HEMOGLOBIN 32.8 pg (27.5-34.5); MEAN CORPUSCULAR VOLUME 102.2 fL (81-97); MEAN PLATELET VOLUME 9.3 fL (7.4-10.4); RED BLOOD COUNT 2.78 x10^6/uL (4.38-5.82); RED CELL DISTRIBUTION WIDTH 21.5 % (9.4-14.8)
[2020-02-20 05:55] LABS: MD YES
[2020-02-20 05:56] LABS: MONOS#(MANUAL) 0.21 x10^3/uL (0.3-2.7); MONOS% (MANUAL) 3 % (2-9)
[2020-02-20 05:57] LABS: BAND#(MANUAL) 0.28 x10^3/uL; BANDS%(MANUAL) 4 % (0-7); LYMPH#(MANUAL) 1.19 x10^3/uL (1-3.4); LYMPHS% (MANUAL) 17 % (22-44); SEG#(MANUAL) 5.32 x10^3/uL (1.8-6.8); SEGS% (MANUAL) 76 % (42-75)
[2020-02-20 05:58] LABS: <PLATELET ESTIMATE> DECREASED; <PLT MORPHOLOGY> NORMAL PLT MORPH; ANISOCYTOSIS 1+; PMNS WITH VACUOLES 1+; POLYCHROMASIA 1+
[2020-02-20 06:01] LABS: PLATELET COUNT 19 x10^3/uL (130-400)
[2020-02-20 07:13] LABS: ALANINE AMINOTRANSFERASE 23 U/L (12-78); ALBUMIN 2.3 g/dL (3.4-5.0); CALCIUM 9.2 mg/dL (8.5-10.1); CREATININE 1.47 mg/dL (0.7-1.3)
[2020-02-20 07:15] LABS: ALKALINE PHOSPHATASE 68 U/L (45-117); BILIRUBIN,TOTAL 0.4 mg/dL (0.2-1.0); TOTAL PROTEIN 8.5 g/dL (6.4-8.2)
[2020-02-20 07:30] LABS: ANION GAP 5 mmol/L (5-15); CHLORIDE 97 mmol/L (98-107)
[2020-02-20] MEDS: FUROSEMIDE 20 MG/2 ML IV SCH (09:43)
[2020-02-20] MEDS ORDERED: OXYBUTYNIN CHLORIDE 5 MG TABLET PO PRN (16:00)
[2020-02-20] MEDS: FUROSEMIDE 40 MG TABLET PO SCH (17:41)
[2020-02-21 00:42] VITALS: BP 123/83
[2020-02-21 06:40] LABS: ALANINE AMINOTRANSFERASE 22 U/L (12-78); ALBUMIN 2.3 g/dL (3.4-5.0); ANION GAP 2 mmol/L (5-15); CALCIUM 8.7 mg/dL (8.5-10.1); CHLORIDE 99 mmol/L (98-107)
[2020-02-21 06:43] LABS: ALKALINE PHOSPHATASE 68 U/L (45-117); BILIRUBIN,TOTAL 0.4 mg/dL (0.2-1.0); CREATININE 1.39 mg/dL (0.7-1.3); TOTAL PROTEIN 8.2 g/dL (6.4-8.2)
[2020-02-21 07:03] VITALS: BP 115/68
[2020-02-21] MEDS: FUROSEMIDE 40 MG TABLET PO SCH (08:12)
[2020-02-21 08:57] LABS: MICROSCOPIC AUTO
[2020-02-21] MEDS ORDERED: FINASTERIDE 5 MG TABLET PO SCH (09:00)
[2020-02-21 09:25] LABS: CULTURE INDICATED? YES
[2020-02-21] MEDS ORDERED: FURO40TA6 PO (10:55)
[2020-02-21] MEDS ORDERED: FINA5TAB4 PO (10:55)
[2020-02-21] MEDS ORDERED: OXYB5TAB10 PO (10:55)
== END 2020-02-21 14:00 | disposition home health service (06) | DRG 682 ==
LOC: ED 10:42 → EDIP 12:15 → SUATTDRO 12:17 → 5SO 13:07 → CCU 17:44 → 4WST 02-13 17:30
PROVIDERS: ADMIT Hospitalist; ATTEND Internal Medicine
PROC: 5A09357 Assistance with Respiratory Ventilation, Less than 24 Consecutive Hours, Continuous Positive Airway Pressure (ICD-10-PCS; 2020-02-11)
PROC: 5A09357 Assistance with Respiratory Ventilation, Less than 24 Consecutive Hours, Continuous Positive Airway Pressure (ICD-10-PCS; 2020-02-12)
PROC: 0T9B70Z Drainage of Bladder with Drainage Device, Via Natural or Artificial Opening (ICD-10-PCS; 2020-02-12)
PROC: 5A09357 Assistance with Respiratory Ventilation, Less than 24 Consecutive Hours, Continuous Positive Airway Pressure (ICD-10-PCS; 2020-02-13)
PROC: 30233N1 Transfusion of Nonautologous Red Blood Cells into Peripheral Vein, Percutaneous Approach (ICD-10-PCS; principal; 2020-02-20)
DX: N17.9 Acute kidney failure, unspecified (principal); J96.21 Acute and chronic respiratory failure with hypoxia; I50.33 Acute on chronic diastolic (congestive) heart failure; J96.22 Acute and chronic respiratory failure with hypercapnia; I13.0 Hypertensive heart and chronic kidney disease with heart failure and stage 1 through stage 4 chronic kidney disease, or unspecified chronic kidney disease; D69.3 Immune thrombocytopenic purpura; E87.4 Mixed disorder of acid-base balance; E87.3 Alkalosis; J96.11 Chronic respiratory failure with hypoxia; K21.9 Gastro-esophageal reflux disease without esophagitis; I27.20 Pulmonary hypertension, unspecified; N40.0 Benign prostatic hyperplasia without lower urinary tract symptoms; Z96.651 Presence of right artificial knee joint; D53.9 Nutritional anemia, unspecified; N26.1 Atrophy of kidney (terminal); N18.3 Chronic kidney disease, stage 3 (moderate); E66.9 Obesity, unspecified; R04.0 Epistaxis; Z66 Do not resuscitate; R31.0 Gross hematuria; W18.39XA Other fall on same level, initial encounter; R16.1 Splenomegaly, not elsewhere classified; G47.33 Obstructive sleep apnea (adult) (pediatric); S30.1XXA Contusion of abdominal wall, initial encounter; Z87.442 Personal history of urinary calculi; Z90.49 Acquired absence of other specified parts of digestive tract; Z98.49 Cataract extraction status, unspecified eye; Z87.891 Personal history of nicotine dependence; Z87.01 Personal history of pneumonia (recurrent); Z79.899 Other long term (current) drug therapy; Z68.38 Body mass index [BMI] 38.0-38.9, adult; Y93.89 Activity, other specified; Y92.89 Other specified places as the place of occurrence of the external cause; Y99.8 Other external cause status
CPT/HCPCS: 36415; 36600; 70450; 70553; 71045; 74176; 76700; 80048; 80053; 81001; 82040; 82272; 82533; 82607; 82728; 82803; 83001; 83002; 83003; 83540; 83550; 83735; 83880; 84100; 84145; 84146; 84305; 84403; 84439; 84443; 84484; 85014; 85018; 85025; 86850; 86900; 87081; 87086; 93005; 93970; 94660; 96374; G0378; J1940; A9575; P9035; Q0163